=== PATIENT | female | born 1985 | race Caucasian/White ===

== ENCOUNTER 2017-11-14 22:44 | Emergency (ER) | payer OTHER ==
[2017-11-14] MEDS ORDERED: PROMETHAZINE 25 MG/ML VIAL ONE (23:21)
[2017-11-14] MEDS ORDERED: NA CHLORIDE 0.9% 1,000 ML ONE (23:21)
[2017-11-14] MEDS ORDERED: DEXAMETHASONE 10 MG/ML VIAL ONE (23:23)
[2017-11-15 00:04] LABS: Urine Blood NEGATIVE (NEG); Urine Glucose NEGATIVE (NEG); Urine Protein NEGATIVE (NEG); Urine Specific Gravity 1.015 (1.005-1.030)
[2017-11-15 00:26] LABS: Absolute Lymphocytes (CBC) 2.7 K/uL (0.7-4.9); Absolute Monocytes 0.5 K/uL (0.1-1.3); Absolute Neutrophil 3.8 K/uL (1.8-8.0); Basophils % 1.1 % (0-1.3); Eosinophils % 3.4 % (0-4.4); Hematocrit 40.3 % (36.0-45.0); Lymphocytes % 36.7 % (15.3-44.8); MCH 29.6 pg (27.0-35.0); MCV 86.3 fL (80-100); MPV 8.8 fL (7.6-11.3); Monocytes % 6.4 % (3.3-12.3); RBC Red Blood Cell Count 4.67 M/uL (3.86-4.86)
[2017-11-15 00:32] LABS: Barbiturates NEGATIVE; Benzodiazepines POSITIVE; Cocaine NEGATIVE; METHAMPHETAM NEGATIVE (NEGATIVE); Opiates NEGATIVE; Phencyclidine NEGATIVE; THC Cannibis NEGATIVE
[2017-11-15 00:48] LABS: Potassium 3.4 mEq/L (3.6-5.0)
[2017-11-15 00:53] LABS: Albumin 4.7 g/dL (3.2-5.5); Bilirubin Direct 0.1 mg/dL (0-0.2); Bilirubin Total 0.8 mg/dL (0.3-1.2); Protein, Total 7.4 g/dL (6.0-8.3)
[2017-11-15 01:02] LABS: Urine Bacteria <20 /HPF (<20); Urine Culture Reflex Order NOT NEEDED; Urine RBC NONE SEEN /HPF (NONE SEEN)
[2017-11-15] MEDS ORDERED: ACETAMINOPHEN 500 MG TAB ONE (01:28)
[2017-11-15] MEDS ORDERED: MORPHINE 4 MG/ML SYR ONE (01:28)
--- NOTE | 2017-11-15 03:28 | ER ---
Nurse's Notes [facility] Name: Jennifer Uriostegui Age: 32 yrs Sex: Female : 1985 Arrival Date: 11/14/2017 Time: 22:49 Bed 6 Private MD: Diagnosis: Acute on Chronic Migraine Headache Presentation: 11/14 23:11 Presenting complaint: Patient states: migraine started at 2014. pt takes phenergen, ak1 imatrex and hydrocodone/motrin at home for chronic migraines. Transition of care: patient was not received from another setting of care. Onset of symptoms was November 14, 2017. Risk Assessment: Do you want to hurt yourself or someone else? Patient reports no desire to harm self or others. Initial Sepsis Screen: Does the patient meet any 2 criteria? No. Patient's initial sepsis screen is negative. Does the patient have a suspected source of infection? No. Patient's initial sepsis screen is negative. Care prior to arrival: None. 23:11 Method Of Arrival: Ambulatory ak 23:11 Acuity: GISELLE 3 ak1 Triage Assessment: 23:14 Headache History: The patient has had previous headaches and this one is similar to ak1 previous episodes, and this one is more severe than previous episodes. General: Appears uncomfortable, Behavior is calm, cooperative. Pain: Complains of pain in head Pain currently is 8 out of 10 on a pain scale. Pain began 3 hours ago. Also complains of nausea, photophobia. EENT: No signs and/or symptoms were reported regarding the EENT system. Neuro: Level of Consciousness is awake, alert, obeys commands, Oriented to person, place, time, situation, Teacher Instrumental are equal bilaterally Moves all extremities. Gait is steady, Speech is normal, Facial symmetry appears normal, Pupils are PERRLA. Cardiovascular: No deficits noted. Respiratory: No deficits noted. GI: No signs and/or symptoms were reported involving the gastrointestinal system. : No signs and/or symptoms were reported regarding the genitourinary system. Derm: No signs and/or symptoms reported regarding the dermatologic system. Musculoskeletal: No signs and/or symptoms reported regarding the musculoskeletal system. 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 - Social history:: Smoking status: Patient/guardian denies using tobacco. - Ebola Screening: : Patient negative for fever greater than or equal to 101.5 degrees Fahrenheit, and additional compatible Ebola Virus Disease symptoms Patient denies exposure to infectious person Patient denies travel to an Ebola-affected area in the 21 days before illness onset. Screenin:17 Abuse screen: Denies threats or abuse. Denies injuries from another. Nutritional ak1 screening: No deficits noted. Tuberculosis screening: No symptoms or risk factors identified. Fall Risk None identified. Assessment: 23:17 Reassessment: Patient appears in no apparent distress at this time. No changes from ak1 previously documented assessment. see triage assessment. General: Appears uncomfortable. Pain: Complains of pain in headache. 11/15 00:06 Reassessment: Patient appears in no apparent distress at this time. No changes from ak1 previously documented assessment. Patient and/or family updated on plan of care and expected duration. Pain level reassessed. 01:11 Reassessment: pt IV infiltrated, pt refusing new IV start. ERP notified. ak1 01:19 Reassessment: pt refused another IV stick, pt asking what ERP will give to relieve the ak1 pain. ERP notified. 03:32 Reassessment: Patient and/or family updated on plan of care and expected duration. Pain ea level reassessed. Patient is alert, oriented x 3, equal unlabored respirations, skin warm/dry/pink. Discharge instructions given to patient, verbalized the understanding of instructions. Vital Signs: 11/14 23:14 BP 131 / 78; Pulse 82; Resp 16; Temp 97.6(TE); Pulse Ox 100% on R/A; Weight 83.91 kg ak1 (R); Height 5 ft. 7 in. (170.18 cm) (R); Pain 8/10; 11/15 01:18 BP 122 / 87; Pulse 58; Resp 16; Pulse Ox 100% on R/A; Pain 8/10; ak1 01:53 BP 113 / 72; Pulse 51; Resp 16; Temp 98.; Pulse Ox 99% on R/A; Pain 6/10; ak1 02:48 BP 104 / 79; Pulse 51; Resp 16; Pulse Ox 99% on R/A; ak1 03:27 BP 102 / 67; Pulse 51; Resp 14; Temp 98; Pulse Ox 99% on R/A; Pain 3/10; ak1 11/14 23:14 Body Mass Index 28.97 (83.91 kg, 170.18 cm) ak1 ED Course: 11/14 22:49 Patient arrived in ED. al2 23:06 Brendan Hines NP is PHCP. pm1 23:06 Nick Simpson MD is Attending Physician. pm1 23:11 Jina Stinson, KISHAN is Primary Nurse. ak1 23:12 Triage completed. ak1 23:14 Arm band placed on Patient placed in an exam room, on a stretcher, on pulse oximetry, ak1 Patient notified of wait time. 23:17 Patient has correct armband on for positive identification. Placed in gown. Bed in low ak1 position. Call light in reach. Side rails up X 1. Adult w/ patient. Pulse ox on. NIBP on. 23:40 Inserted saline lock: 22 gauge in right antecubital area, using aseptic technique. ak1 11/15 00:21 Initial lab(s) drawn, by me, sent to lab. cb2 02:33 Head Brain Wo Cont CT In Process Unspecified. EDMS 02:33 CT completed. Patient tolerated procedure well. Patient moved to CT via wheelchair. eh Patient moved back from CT. 03:26 Gautam Feliciano MD is Referral Physician. wa 03:27 IV discontinued, intact, bleeding controlled, No redness/swelling at site. Pressure ak1 dressing applied. 03:28 No provider procedures requiring assistance completed. ak1 Administered Medications: 11/14 23:33 Drug: NS 0.9% 1000 ml Route: IV; Rate: 1 bolus; Site: right antecubital; ak1 11/15 01:37 Follow up: IV Status: Order to discontinue infusion ak1 11/14 23:34 Drug: Decadron - Dexamethasone 10 mg Route: IVP; Site: right antecubital; ak1 11/15 01:37 Follow up: Response: No adverse reaction ak1 11/14 23:34 Drug: Phenergan 12.5 mg Route: IVP; Site: right antecubital; ak1 11/15 01:37 Follow up: Response: No adverse reaction ak06 21:26 CANCELLED (Physician Discretion): morphine 5 mg IM once 01:36 Drug: morphine 4 mg Route: IM; Site: right gluteus; ak1 01:54 Follow up: Response: No adverse reaction ak1 01:37 Drug: Tylenol 1000 mg Route: PO; ak1 01:54 Follow up: Response: No adverse reaction ak1 Outcome: 03:27 Discharge ordered by . ca 03:33 Discharged to home ambulatory, with family. ea 03:33 Condition: improved 03:33 Discharge instructions given to patient, Instructed on discharge instructions, follow up and referral plans. Demonstrated understanding of instructions, follow-up care. 03:34 Patient left the ED. ea Signatures: Dispatcher [employer] Silviano Collins Amber RN RN ak1 Brendan Hines, THERESA MANAGER COUNTRY pm1 Renato Green Elena, RN RN ea Appiah, William, MD MD wa Love, Flavia sanchez
--- NOTE | 2017-11-15 03:28 | EDPHYS ---
Physician Documentation [facility] Name: Jennifer Uriostegui Age: 32 yrs Sex: Female : 1985 Arrival Date: 11/14/2017 Time: 22:49 Bed 6 Private MD: ED Physician Nick Simpson HPI: 11/14 23:30 This 32 yrs old Female presents to ER via Ambulatory with complaints of wa Headache. 23:30 The patient complains of pain to the forehead. The patient describes the headache as wa aching, constant. Onset: The symptoms/episode began/occurred gradually, 3 hour(s) ago, and became worse 1 hour(s) ago. Associated signs and symptoms: Pertinent positives: nausea, Photophobia blurred vision, Pertinent negatives: altered mental status, fever, malaise. Severity of symptoms: At its worst the pain was severe, in the emergency department the pain is unchanged. Headache History: The patient has had previous headaches and this one is similar to previous episodes. The symptoms are alleviated by nothing. the symptoms are aggravated by lights, noise, stress. The patient has experienced similar episodes in the past, multiple times. The patient has not recently seen a physician. 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 - Social history:: Smoking status: Patient/guardian denies using tobacco. - Ebola Screening: : Patient negative for fever greater than or equal to 101.5 degrees Fahrenheit, and additional compatible Ebola Virus Disease symptoms Patient denies exposure to infectious person Patient denies travel to an Ebola-affected area in the 21 days before illness onset. ROS: 23:36 Constitutional: Negative for fever, chills, and weight loss, Eyes: Negative for injury, wa pain, redness, and discharge, ENT: Negative for injury, pain, and discharge, Neck: Negative for injury, pain, and swelling, Cardiovascular: Negative for chest pain, palpitations, and edema, Respiratory: Negative for shortness of breath, cough, wheezing, and pleuritic chest pain, Abdomen/GI: Negative for abdominal pain, nausea, vomiting, diarrhea, and constipation, Back: Negative for injury and pain, : Negative for injury, bleeding, discharge, and swelling, MS/Extremity: Negative for injury and deformity, Skin: Negative for injury, rash, and discoloration. 23:36 Neuro: Positive for headache, Negative for altered mental status, gait disturbance. 23:36 All other systems are negative. Exam: 23:37 Constitutional: This is a well developed, well nourished patient who is awake, alert, wa and in no acute distress. Head/Face: Normocephalic, atraumatic. Eyes: Pupils equal round and reactive to light, extra-ocular motions intact. Lids and lashes normal. Conjunctiva and sclera are non-icteric and not injected. Cornea within normal limits. Periorbital areas with no swelling, redness, or edema. ENT: Nares patent. No nasal discharge, no septal abnormalities noted. Tympanic membranes are normal and external auditory canals are clear. Oropharynx with no redness, swelling, or masses, exudates, or evidence of obstruction, uvula midline. Mucous membranes moist. Neck: Trachea midline, no thyromegaly or masses palpated, and no cervical lymphadenopathy. Supple, full range of motion without nuchal rigidity, or vertebral point tenderness. No Meningismus. Cardiovascular: Regular rate and rhythm with a normal S1 and S2. No gallops, murmurs, or rubs. Normal PMI, no JVD. No pulse deficits. Respiratory: Lungs have equal breath sounds bilaterally, clear to auscultation and percussion. No rales, rhonchi or wheezes noted. No increased work of breathing, no retractions or nasal flaring. Abdomen/GI: Soft, non-tender, with normal bowel sounds. No distension or tympany. No guarding or rebound. No evidence of tenderness throughout. Back: No spinal tenderness. No costovertebral tenderness. Full range of motion. Skin: Warm, dry with normal turgor. Normal color with no rashes, no lesions, and no evidence of cellulitis. MS/ Extremity: Pulses equal, no cyanosis. Neurovascular intact. Full, normal range of motion. Neuro: Awake and alert, GCS 15, oriented to person, place, time, and situation. Cranial nerves II-XII grossly intact. Motor strength 5/5 in all extremities. Sensory grossly intact. Cerebellar exam normal. Normal gait. Psych: Awake, alert, with orientation to person, place and time. Behavior, mood, and affect are within normal limits. Vital Signs: 23:14 BP 131 / 78; Pulse 82; Resp 16; Temp 97.6(TE); Pulse Ox 100% on R/A; Weight 83.91 kg ak1 (R); Height 5 ft. 7 in. (170.18 cm) (R); Pain 8/10; 11/15 01:18 BP 122 / 87; Pulse 58; Resp 16; Pulse Ox 100% on R/A; Pain 8/10; ak1 01:53 BP 113 / 72; Pulse 51; Resp 16; Temp 98.; Pulse Ox 99% on R/A; Pain 6/10; ak1 02:48 BP 104 / 79; Pulse 51; Resp 16; Pulse Ox 99% on R/A; ak1 03:27 BP 102 / 67; Pulse 51; Resp 14; Temp 98; Pulse Ox 99% on R/A; Pain 3/10; ak1 11/14 23:14 Body Mass Index 28.97 (83.91 kg, 170.18 cm) ak1 MDM: 11/14 23:13 Patient medically screened. nh 23:37 Differential diagnosis: similar SAHU to previous migraines. no other concerning factors. nh will treat and reassess for resolution. 11/15 03:25 Data reviewed: vital signs, nurses notes, lab test result(s). Test interpretation: by nh ED physician or midlevel provider: nml head CT. labs wnl. . Response to treatment: the patient's symptoms have markedly improved after treatment. ED course: symptoms resolved. pt states has all her meds at home and does not need a script. 11/14 23:15 Order name: Urine Drug Screen; Complete Time: 01:07 nh 11/14 23:15 Order name: Urine Microscopic Only; Complete Time: 01:08 nh 11/14 23:15 Order name: Basic Metabolic Panel; Complete Time: 01:07 nh 11/14 23:15 Order name: CBC with Diff; Complete Time: 01:07 nh 11/14 23:15 Order name: Hepatic Function; Complete Time: 01:07 nh 11/14 23:33 Order name: Urine Dipstick--Ancillary (enter results); Complete Time: 01:08 [facility] 11/14 23:33 Order name: Urine --Ancillary (enter results); Complete Time: 01:07 [facility] 11/15 01:24 Order name: Head Brain Wo Cont CT nh 11/14 23:15 Order name: IV Start; Complete Time: 23:34 nh 11/14 23:15 Order name: Urine Dipstick-Ancillary (obtain specimen); Complete Time: 23:36 nh Administered Medications: 11/14 23:33 Drug: NS 0.9% 1000 ml Route: IV; Rate: 1 bolus; Site: right antecubital; [facility] 11/15 01:37 Follow up: IV Status: Order to discontinue infusion [facility] 11/14 23:34 Drug: Decadron - Dexamethasone 10 mg Route: IVP; Site: right antecubital; [facility] 11/15 01:37 Follow up: Response: No adverse reaction [facility] 11/14 23:34 Drug: Phenergan 12.5 mg Route: IVP; Site: right antecubital; [facility] 11/15 01:37 Follow up: Response: No adverse reaction [facility] 01:26 CANCELLED (Physician Discretion): morphine 5 mg IM once 01:36 Drug: morphine 4 mg Route: IM; Site: right gluteus; ak1 01:54 Follow up: Response: No adverse reaction [facility] 01:37 Drug: Tylenol 1000 mg Route: PO; ak1 01:54 Follow up: Response: No adverse reaction ak1 Disposition: 11/15/17 03:27 Discharged to Home. Impression: Acute on Chronic Migraine Headache. - Condition is Stable. - Discharge Instructions: Migraine Headache, [id number]. - Medication Reconciliation Form, Thank You Letter, Antibiotic Education, Prescription Opioid Use form. - Follow up: Gautam Feliciano MD; When: 2 - 3 days; Reason: Recheck today's complaints, Re-evaluation by your physician. - Problem is an acute exacerbation. - Symptoms have improved. - Notes: follow up with your neurologist as needed but return here for any rapidly worsening concerns Signatures: Dispatcher [employer] EDJina Guzman RN RN ak1 Tori Dempsey RN RN ea Nick Simpson MD MD wa Corrections: (The following items were deleted from the chart) 01:26 01:25 morphine 5 mg IM once ordered. bina curran 03:34 03:27 11/15/2017 03:27 Discharged to Home. Impression: Acute on Chronic Migraine ea Headache. Condition is Stable. Forms are Medication Reconciliation Form, Thank You Letter, Antibiotic Education, Prescription Opioid Use. Follow up: Gautam Feliciano; When: 2 - 3 days; Reason: Recheck today's complaints, Re-evaluation by your physician. Problem is an acute exacerbation. Symptoms have improved. bina
--- NOTE | 2017-11-15 09:44 | RAD REPORT ---
EXAM DESCRIPTION: CT - Head Brain Wo Cont - 11/15/2017 3:20 am CLINICAL HISTORY: Headache A preliminary written report was provided at the time of the study, and the report was reviewed prio r to final dictation. COMPARISON: CT head 2010 TECHNIQUE: Axial 5 mm thick images of the head were obtained without IV contrast. All CT scans are performed using dose optimization technique as appropriate and may include automated exposure control or mA/KV adjustment according to patient size. FINDINGS: No intracranial hemorrhage, mass, edema or shift of mid-line structures. No acute infarcti on changes seen. No abnormal extra-axial fluid collections. Ventricles are normal. Mastoid air cells and visualized portions of the paranasal sinuses are clear. No acute bony findings. IMPRESSION: Negative non-contrast CT head examination. No significant change from 2011.
== END 2017-11-15 03:34 | disposition home or self-care (01) ==
LOC: ER 22:44
DX: G43.809 Other migraine, not intractable, without status migrainosus (principal); Z88.6 Allergy status to analgesic agent; Z88.8 Allergy status to other drugs, medicaments and biological substances
CPT/HCPCS: 36415; 70450; 80048; 80076; 80307; 81003; 81015; 81025; 85025; 96361; 96372; 96374; 96375; 99284; J1100; J2550; J7030

== ENCOUNTER 2018-11-07 05:52 | Emergency (ER) | payer OTHER ==
--- OUTSIDE RECORDS SUMMARY | 2018-11-07 05:57 | XMS REPORT | Summary of Care ---
:1985 Author Organization [facility] Address [address] [place] [id number] Encounter HQ Zeferino(AASHISH) [id number] Date(s): 02/06/16 - 02/09/[address] [address]- Final: related conditions, unspecified, unspecified trimester Discharge Disposition: Home or Self Care Attending Physician: Brayan Kaur MD Admitting Physician: Brayan Kaur MD Vital Signs Most recent to oldest 1 2 3 [Reference Range]: Height 170.18 cm (02/06/16 2:53 PM) Temperature Oral [96.4-99.1 97.8 DegF 97.4 DegF 97.9 DegF DegF] (02/09/16 12:26 AM) (02/08/16 4:18 PM) (02/08/16 8:54 AM) Blood Pressure [90-140/60-90 111/65 mmHg 130/77 mmHg 119/76 mmHg mmHg] (02/09/16 9:52 AM) (02/09/16 12:26 AM) (02/08/16 4:18 PM) Respiratory Rate [14-20 16 BRMIN 18 BRMIN 16 BRMIN BRMIN] (02/09/16 9:52 AM) (02/09/16 12:26 AM) (02/08/16 4:18 PM) Peripheral Pulse Rate [60-100 76 bpm 81 bpm 72 bpm bpm] (02/09/16 9:52 AM) (02/09/16 12:26 AM) (02/08/16 4:18 PM) Weight 104.545 kg (02/06/16 2:53 PM) Body Mass Index 36.1 m2 (02/06/16 2:53 PM) Problem List Condition Effective Dates Status Health Status Informant (Confirmed) Resolved Anxiety(Confirmed) Active Depression(Confirmed) Active Group B streptococcus(Confirmed) Active Migraines(Confirmed) Active (Confirmed) Active (Confirmed) 02/03/16 Active (Confirmed) < 2014 Resolved Vaginal delivery(Confirmed) 02/07/16 Active Allergies, Adverse Reactions, Alerts Substance Reaction Severity Status Compazine Reglan Active Reglan Reglan Active Toradol Active Zofran iv form Active Medications acetaminophen-hydrocodone 325 mg-10 mg oral tablet 1 tab, Route: PO, Drug Form: TAB, Dosing Weight 104.545, kg, Q4H, PRN Pain Score 7-10, Start date: 02/08/16 3:14:00 CDT, Duration: 30 day, Stop date: 03/09 3:13:00 CDT Notes: Do not exceed 4gm/day of acetaminophen. (Same as: [place] 325/10) Start Date: 02/08/16 Stop Date: 02/10/16 Status: Discontinuedacetaminophen-hydrocodone 325 mg-5 mg oral tablet 1 tab, Route: PO, Drug Form: TAB, Dosing Weight 104.545, kg, Q4H, PRN Pain Score 4-6, Start date: 02/08/16 3:14:00 CDT, Duration: 30 day, Stop date: 3:13:00 CDT Notes: (Same as: [place] 325/5) Do not exceed 4gm/day of acetaminophen. Start Date: 02/08/16 Stop Date: 02/10/16 Status: Discontinuedacetaminophen-hydrocodone 325 mg-5 mg oral tablet 2 tab, Route: PO, Drug Form: TAB, Dosing Weight 104.545, kg, Q4H, PRN Pain Score 7-10, Start date: 02/06/16 15:23:00 CDT, Duration: 30 day, Stop date: 15:22:00 CDT Notes: (Same as: [place] 325/5) Do not exceed 4gm/day of acetaminophen. Start Date: 02/06/16 Stop Date: 02/08/16 Status: Discontinuedacetaminophen-hydrocodone 325 mg-5 mg oral tablet 1 tab, Route: PO, Drug Form: TAB, Dosing Weight 104.545, kg, Q4H, PRN Pain Score 4-6, Start date: 02/06/16 15:23:00 CDT, Duration: 30 day, Stop date: 03/07 15:22:00 CDT Notes: (Same as: [place] 325/5) Do not exceed 4gm/day of acetaminophen. Start Date: 02/06/16 Stop Date: 02/08/16 Status: DiscontinuedAmbien 5 mg, 1 tab, Route: PO, Drug form: TAB, Bedtime, Dosing Weight 104.545, kg, PRN Insomnia, Start date: 02/06/16 18:39:00 CDT, Duration: 30 day, Stop date: 18:38:00 CDT Notes: (Same As: Ambien) Start Date: 02/06/16 Stop Date: 02/10/16 Status: Discontinuedampicillin 4 gm, Route: IV, ONCE, Dosing Weight 104.545, kg, Start date: 02/07/16 21:42:00 CDT, Stop date: 02/07/16 21:42:00 CDT Start Date: 02/07/16 Stop Date: 02/07/16 Status: Discontinuedampicillin 2 gm, Route: IVPB, ABXQ6H, Dosing Weight 104.545, kg, Start date: 02/07/16 22:00 :00 CDT, Duration: 30 day, Stop date: 03/08/16 16:00:00 CDT Start Date: 02/07/16 Stop Date: 02/07/16 Status: Canceledampicillin + sodium chloride 0.9% INJ 100 mL 2 gm, Route: IVPB, ONCE, Dosing Weight 104.545, kg, Start date: 02/07/16 21:45: 00 CDT, Stop date: 02/07/16 21:45:00 CDT Notes: (Same as: Flor) MEDICATION WASTE Product Size: 2000 mgProduct Wasted: ___ mg Start Date: 02/07/16 Stop Date: 02/07/16 Status: Completedampicillin + sodium chloride 0.9% INJ 100 mL 1 gm, Route: IVPB, Drug form: PDR/INJ, ABXQ6H, Dosing Weight 104.545, kg, Start date: 02/07/16 22:00:00 CDT, Duration: 30 day, Stop date: 03/08/16 16:00:00 CDT Notes: (Same as: Flor) MEDICATION WASTE Product Size: 1000 mgProduct Wasted: ___ mg Start Date: 02/07/16 Stop Date: 02/09/16 Status: DiscontinuedBD Normal Saline Flush 5 mL, Route: IV, Drug Form: INJ, PRN, PRN Line Flush, Start date: 02/07/16 8:08: 00 CDT, Duration: 30day, Stop date: 03/08/16 8:07:00 CDT Notes: (Same as: BD Posiflush) Start Date: 02/07/16 Stop Date: 02/10/16 Status: DiscontinuedBenadryl 25 mg, 0.5 mL, Route: IVP, Drug form: INJ, ONCE, Dosing Weight 104.545, kg, PRN Itching, Start date:02/07/16 7:45:00 CDT Notes: (Same as: Benadryl) Start Date: 02/07/16 Stop Date: 02/07/16 Status: Completedbisacodyl 15 mg, 3 tab, Route: PO, Drug form: ECTAB, Daily, Dosing Weight 104.545, kg, PRN Other -See Comment,Start date: 02/08/16 3:14:00 CDT, Duration: 30 day, Stop date: 03/09/16 3:13:00 CDT Notes: (Same As: Dulcolax, Correctol) (Do Not Crush) "Do Not Crush" Start Date: 02/08/16 Stop Date: 02/10/16 Status: Discontinuedbisacodyl 10 mg, 1 supp, Route: NE, Drug form: SUPP, PRN, Dosing Weight 104.545, kg, PRN Other -See Comment, Start date: 02/08/16 3:14:00 CDT, Duration: 30 day, Stop date: 03/09/16 3:13:00 CDT Notes: (Same As: Dulcolax, Bisco-Lax) Start Date: 02/08/16 Stop Date: 02/10/16 Status: Discontinuedbupivacaine-epinephrine 0.25%-1:200,000 preservative-free injectable solution Route: EPIDURAL, Drug Form: INJ, Dosing Weight 104.545, kg, ONCE, Start date: 4:46:00 CDT, Stop date: 02/07/16 4:46:00 CDT Notes: (bupivacaine-epi 0.25%-1:200,000 30 ml VL) Not for use in continuous infusion. (Same As: Marcaine w/Epi) Start Date: 02/07/16 Stop Date: 02/07/16 Status: OrderedBuSpar 15 mg, 1 tab, Route: PO, Drug form: TAB, Bedtime, Dosing Weight 104.545, kg, Start date: 02/06/16 21:00:00 CDT, Duration: 30 day, Stop date: 03/06/16 21:00: 00 CDT Notes: (Same As: BuSpar) Start Date: 02/06/16 Stop Date: 02/10/16 Status: Discontinuedbutorphanol 2 mg, 2 mL, Route: IVP, Drug form: INJ, Q2H, Dosing Weight 104.545, kg, PRN Pain Score 7-10, Start date: 02/06/16 15:23:00 CDT, Duration: 30 day, Stop date : 03/07/16 15:22:00 CDT Notes: (Same As: Stadol) Start Date: 02/06/16 Stop Date: 02/08/16 Status: Discontinuedbutorphanol 1 mg, 1 mL, Route: IVP, Drug form: INJ, Q2H, Dosing Weight 104.545, kg, PRN Pain Score 4-6, Start date: 02/06/16 15:23:00 CDT, Duration: 30 day, Stop date: 03/07/16 15:22:00 CDT Notes: (Same As: Stadol) Start Date: 02/06/16 Stop Date: 02/08/16 Status: Discontinuedcarboprost 250 microgram, 1 mL, Route: IM, Drug form: INJ, ONCALL, Dosing Weight 104.545, kg, Start date: 02/06/16 16:00:00 CDT, Duration: 30 day, Stop date: 03/07/16 15: 59:00 CDT Notes: (Same As: Hemabate) Start Date: 02/06/16 Stop Date: 02/08/16 Status: DiscontinuedCervidil 10 mg, 1 supp, Route: VAG, Drug form: SUPP, ONCE, Dosing Weight 104.545, kg, Start date: 02/06/16 18:38:00 CDT, Duration: 1 doses or times, Stop date: 18:38:00 CDT Notes: (Same as: Cervidil) Start Date: 02/06/16 Stop Date: 02/06/16 Status: Completedcitric acid-sodium citrate 30 mL, Route: PO, Drug Form: SOLN, Dosing Weight 104.545, kg, ONCALL, Start date : 02/06/16 16:00:00 CDT, Duration: 30 day, Stop date: 03/07/16 15:59:00 CDT Notes: (Same As: Bicitra, Cytra-2) Sodium citrate-citric acid (500-334 mg/5 mL) : 1 mL contains sodium 1 mEq/mL and bicarbonate 1 mEq/mL Start Date: 02/06/16 Stop Date: 02/08/16 Status: DiscontinuedDermoplast 20% topical spray 1 spray, Route: TOP, PRN, Drug form: SPRY, PRN Irritation, Start date: 02/08/16 3:14:00 CDT, Duration: 30 day, Stop date: 03/09/16 3:13:00 CDT Notes: (Same As: Dermoplast)WASTE: Aerosol - Return to Pharmacy FOR EXTERNAL USE ONLY Start Date: 02/08/16 Stop Date: 02/10/16 Status: Discontinueddiphtheria/pertussis, acel/tetanus adult 2 units-15.5 mcg-5 units/0.5 mL intramuscular suspension 0.5 mL, Route: IM, Drug Form: SUSP, Dosing Weight 104.545, kg, ONCALL, Start date: 02/08/16 4:00:00 CDT, Duration: 1 doses or times Notes: (Tdap ) For Adolecent and Adult use For IM Use. Same as: Adacel (Tdap) Start Date: 02/08/16 Stop Date: 02/10/16 Status: Discontinueddocusate 100 mg, 1 cap, Route: PO, Drug form: CAP, BID, Dosing Weight 104.545, kg, PRN Constipation, Start date: 02/08/16 3:14:00 CDT, Duration: 30 day, Stop date: 3:13:00 CDT Notes: (Same as: Colace) (Do Not Crush) Start Date: 02/08/16 Stop Date: 02/10/16 Status: Discontinuedfamotidine 20 mg, 2 mL, Route: IVP, Drug form: INJ, ONCALL, Dosing Weight 104.545, kg, Start date: 02/06/16 16:00:00 CDT, Duration: 30 day, Stop date: 03/07/16 15:59: 00 CDT Notes: (Same as: Pepcid)Can be dilute in 5-10cc NS IVP: Slow IV push over at least 2 minutes. Start Date: 02/06/16 Stop Date: 02/08/16 Status: DiscontinuedfentaNYL 4 microgram/ml-bupiv 0.167% 200ml CADD 200 mL Route: EPIDURAL, Continuous Rate: 8, ml/hr, Infusion site: Lumbar, ELECTRIC METER TESTER HELPER dose 3 mL , ELECTRIC METER TESTER HELPER dose lockout: 10 minutes, 1 Hour limit: 30 mL, Clinician Bolus: 5 mL, 200 , mL, Start date: 02/07/16 4:46:00 CDT, Duration: 30, day, Drug Form: INJ, Total volume: 200... Start Date: 02/07/16 Stop Date: 02/10/16 Status: DiscontinuedFioricet 1 tab, Route: PO, Drug Form: TAB, Dosing Weight 104.545, kg, Q4H, PRN Headache 1 -5, Start date: 02/07/16 14:01:00 CDT, Duration: 30 day, Stop date: 03/08/16 14: 00:00 CDT Notes: (hvqnznwargltw-sldbuuiwyn-akruwfch 325-50-40mg) Do not exceed 4 gm/day of acetaminophen. (Same as: Esgic, Fioricet) Start Date: 02/07/16 Stop Date: 02/10/16 Status: Discontinuedgentamicin 120 mg, 100 mL, Route: IV, Drug form: INJ, ONCE, Dosing Weight 104.545, kg, Start date: 02/07/16 21:28:00 CDT, Stop date: 02/07/16 21:28:00 CDT Notes: TIME CRITICAL MEDICATION(Same as Garamycin) Start Date: 02/07/16 Stop Date: 02/07/16 Status: Completedgentamicin 80 mg, 100 mL, Route: IVPB, Drug form: INJ, ABXQ8H, Dosing Weight 104.545, kg, Start date: 02/07/16 5:00:00 CDT, Duration: 30 day, Stop date: 03/07/16 21:00: 00 CDT Notes: TIME CRITICAL MEDICATION(Same as Garamycin) Start Date: 02/07/16 Stop Date: 02/09/16 Status: Discontinuedibuprofen 600 mg, 1 tab, Route: PO, Drug form: TAB, Q6H, Dosing Weight 104.545, kg, Start date: 02/08/16 6:00:00 CDT, Duration: 30 day, Stop date: 03/09/16 0:00:00 CDT Notes: (Same as: Motrin)"Do Not Crush" Take with food. Start Date: 02/08/16 Stop Date: 02/10/16 Status: Discontinuedibuprofen 600 mg, 1 tab, Route: PO, Drug form: TAB, Q6H, Dosing Weight 104.545, kg, PRN Other -See Comment, Start date: 02/06/16 15:23:00 CDT, Duration: 30 day, Stop date: 03/07/16 15:22:00 CDT Notes: (Same as: Motrin)"Do Not Crush" Take with food. Start Date: 02/06/16 Stop Date: 02/08/16 Status: DiscontinuedLactated Ringers (Bolus) IV 1,000 mL, 1,000 ml/hr, Infuse Over: 1 hr, Route: IV, 1,000, Drug form: INJ, ONCE , Dosing Weight 104.545 kg, Start date: 02/06/16 15:23:00 CDT, Stop date: 15:23:00 CDT, Bolus for regional anesthesia per unit protocol Start Date: 02/06/16 Stop Date: 02/08/16 Status: DiscontinuedLactated Ringers 1,000 mL 1,000 mL, Rate: 100 ml/hr, Infuse over: 10 hr, Route: IV, Dosing Weight 104.545 kg, Total Volume: 1,000, Start date: 02/08/16 3:14:00 CDT, Duration: 30 day, Stop date: 03/09/16 3:13:00 CDT Start Date: 02/08/16 Stop Date: 02/10/16 Status: DiscontinuedLactated Ringers 1,000 mL 1,000 mL, Rate: 125 ml/hr, Infuse over: 8 hr, Route: IV, Dosing Weight 104.545 kg, Total Volume: 1,000, Start date: 02/06/16 15:23:00 CDT, Duration: 30 day, Stop date: 03/07/16 15:22:00 CDT Start Date: 02/06/16 Stop Date: 02/08/16 Status: Discontinuedlanolin topical 1 appl, Route: TOP, PRN, Drug form: OINT, PRN Other -See Comment, Start date: 3:14:00 CDT, Duration: 30 day, Stop date: 03/09/16 3:13:00 CDT Notes: (Same as:Lanolin) Start Date: 02/08/16 Stop Date: 02/10/16 Status: Discontinuedlidocaine 1% 20 mL, Route: PERCUT, Drug Form: INJ, Dosing Weight 104.545, kg, PRN, PRN Other -See Comment, Start date: 02/06/16 15:23:00 CDT, Duration: 1 doses or times, Stop date: 03/08/16 0:00:00 CDT Notes: Preservative free. (Same as: Xylocaine MPF) Start Date: 02/06/16 Stop Date: 02/08/16 Status: Discontinuedlidocaine 1% injectable solution 0.25 mL, Route: INTRADERM, Drug Form: INJ, Dosing Weight 104.545, kg, PRN, PRN Other -See Comment, Start date: 02/06/16 15:23:00 CDT, Duration: 30 day, Stop date: 03/07/16 15:22:00 CDT Notes: Preservative free. (Same as: Xylocaine MPF) Start Date: 02/06/16 Stop Date: 02/08/16 Status: NjsxcsbrawlnY-W-W II 0.5 mL, Route: SUB-Q, Drug Form: PDR/INJ, Dosing Weight 104.545, kg, ONCALL, Give only if patient rubella non-immune, Start date: 02/08/16 4:00:00 CDT, Duration: 1 doses or times Notes: (Same as: M-M-R II) (lwylnxd-hbcrt-uisqsvg virus vaccine 0.5 ml INJ VL) WASTE: F/P - Red; E -Red GIVE PRIOR TO DISCHARGE Start Date: 02/08/16 Stop Date: 02/10/16 Status: Discontinuedmethylergonovine 0.2 mg, 1 mL, Route: IM, Drug form: INJ, PRN, Dosing Weight 104.545, kg, PRN Other -See Comment, Start date: 02/08/16 3:14:00 CDT, Duration: 30 day, Stop date: 03/09/16 3:13:00 CDT Notes: (Same as:Methergine) Start Date: 02/08/16 Stop Date: 02/10/16 Status: Discontinuedmethylergonovine 0.2 mg, 1 mL, Route: IM, Drug form: INJ, ONCALL, Dosing Weight 104.545, kg, Start date: 02/06/16 16:00:00 CDT, Duration: 30 day, Stop date: 03/07/16 15:59: 00 CDT Notes: (Same as:Methergine) Start Date: 02/06/16 Stop Date: 02/08/16 Status: Discontinuedmisoprostol 1,000 microgram, 5 tab, Route: NE, Drug form: TAB, ONCALL, Dosing Weight 104.545 , kg, Start date: 02/06/16 16:00:00 CDT, Duration: 1 doses or times, Stop date: 03/08/16 0:00:00 CDT Notes: (Same as:Cytotec) Take with food Start Date: 02/06/16 Stop Date: 02/08/16 Status: Discontinuedondansetron 4 mg, 2 mL, Route: IVP, Drug form: INJ, Q8H, Dosing Weight 104.545, kg, PRN Nausea & Vomiting, Start date: 02/08/16 3:14:00 CDT, Duration: 30 day, Stop date: 03/09/16 3:13:00 CDT Notes: (Same as: Zofran) MEDICATION WASTE Product Size: 4 mgProduct Wasted: ___ mg Start Date: 02/08/16 Stop Date: 02/10/16 Status: Discontinuedondansetron 4 mg, 2 mL, Route: IVP, Drug form: INJ, Q8H, Dosing Weight 104.545, kg, PRN Nausea & Vomiting, Start date: 02/06/16 15:23:00 CDT, Duration: 30 day, Stop date: 03/07/16 15:22:00 CDT Notes: (Same as: Zofran) MEDICATION WASTE Product Size: 4 mgProduct Wasted: ___ mg Start Date: 02/06/16 Stop Date: 02/08/16 Status: Discontinuedoxytocin 30 units in LR 500 mL 30 unit 30 unit, 500 mL, Rate: 42 ml/hr, Infuse over: 11.9 hr, Dosing Weight 104.545, kg , Route: IV, Total Volume: 500 mL, Start date: 02/08/16 3:14:00 CDT, Duration: 2 doses or times, Stop date: 02/09/16 3:01:00 CDT, Replace Every: 11.9 hr Notes: Pitocin 30 units in LR 500 mL Start Date: 02/08/16 Stop Date: 02/09/16 Status: Completedoxytocin 30 units in LR 500 mL 30 unit 30 unit, 500 mL, Rate: 42 ml/hr, Infuse over: 11.9 hr, Dosing Weight 104.545, kg , Route: IV, Total Volume: 500 mL, Start date: 02/06/16 15:23:00 CDT, Duration: 2 day, Stop date: 02/08/16 15:22:00 CDT, Replace Every: 11.9 hr Notes: Pitocin 30 units in LR 500 mL Start Date: 02/06/16 Stop Date: 02/08/16 Status: Discontinuedoxytocin 30 units in LR 500 mL 30 unit 30 unit, 500 mL, Rate: Titrate, Dosing Weight 104.545, kg, Route: IV, Total Volume: 500 mL, Start date: 02/07/16 3:44:00 CDT, Duration: 2 day, Stop date: 3:43:00 CDT, Replace Every: 12 hr Notes: Pitocin 30 units in LR 500 mL Start Date: 02/07/16 Stop Date: 02/07/16 Status: Discontinuedpenicillin G potassium 2,500,000 unit, 50 mL, Route: IVPB, Drug form: INJ, ABXQ4H, Dosing Weight 104.545, kg, Start date: 02/06/16 20:00:00 CDT Start Date: 02/06/16 Stop Date: 02/07/16 Status: Discontinuedpenicillin G potassium 5,000,000 units injection + sodium chloride 0.9% INJ 100 mL 5,000,000 unit, Route: IVPB, ONCALL, Dosing Weight 104.545, kg, Start date: 16:00:00 CDT Notes: (Same as: Pfizerpen) MEDICATION WASTE Product Size: 5,000,000 unitProduct Wasted: ___ unit Start Date: 02/06/16 Stop Date: 02/06/16 Status: CompletedPepcid 20 mg oral tablet 20 mg, 1 tab, Route: PO, Drug form: TAB, Q12H, Dosing Weight 104.545, kg, PRN Heartburn, Start date:02/06/16 19:03:00 CDT, Duration: 30 day, Stop date: 19:02:00 CDT Notes: (Same as: Pepcid) Start Date: 02/06/16 Stop Date: 02/10/16 Status: DiscontinuedPhenergan 12.5 mg, 50 mL, Route: IVPB, Drug form: SOLN, Q6H, Dosing Weight 104.545, kg, PRN Nausea & Vomiting, Start date: 02/07/16 8:36:00 CDT, Duration: 30 day, Stop date: 03/08/16 8:35:00 CDT Start Date: 02/07/16 Stop Date: 02/10/16 Status: DiscontinuedPrenatal Multivitamins oral tablet 1 tab, Route: PO, Drug Form: TAB, Dosing Weight 104.545, kg, Daily, Start date: 02/08/16 9:00:00 CDT, Duration: 30 day, Stop date: 03/08/16 9:00:00 CDT Start Date: 02/08/16 Stop Date: 02/10/16 Status: DiscontinuedRemove - dinoprostone (Cervidil) insert 1 ea, Route: VAG, Drug Form: INS, Dosing Weight 104.545, kg, ONCALL, Start date : 02/07/16 7:00:00 CDT, Duration: 30 day, Stop date: 03/08/16 6:59:00 CDT Notes: Vaginal insert: to be removed 1 hour prior to oxytocin administration or 12 hours after insertion. Start Date: 02/07/16 Stop Date: 02/10/16 Status: DiscontinuedSodium Chloride 0.9% IV 25 mL, Route: IV, Start date: 02/07/16 8:08:00 CDT, Duration: 30 day, Stop date : 03/08/16 8:07:00 CDT, PRN Line Flush Start Date: 02/07/16 Stop Date: 02/10/16 Status: Discontinuedterbutaline 0.25 mg, 0.25 mL, Route: SUB-Q, Drug form: INJ, PRN, Dosing Weight 104.545, kg, PRN Other -See Comment, Start date: 02/06/16 15:23:00 CDT, Duration: 1 doses or times, Stop date: 03/08/16 0:00:00 CDT Notes: DO NOT USE IN CHUTE OPERATOR AREA(Same As: Homero) Start Date: 02/06/16 Stop Date: 02/08/16 Status: DiscontinuedTylenol with Codeine #3 oral tablet 1 - 2 tab, PO, Q4H, PRN Pain, X 3 day, # 20 tab, 0 Refill(s) Start Date: 02/09/16 Stop Date: 02/12/16 Status: Orderedzolpidem 5 mg, Route: PO, Drug form: TAB, Bedtime, Dosing Weight 104.545, kg, PRN Sleep, Start date: 163:14:00 CDT, Duration: 30 day, Stop date: 03/09/16 3:13:00 CDT Start Date: 02/08/16 Stop Date: 02/08/16 Status: Discontinued Results BLOOD BANK RESULTS Most recent to oldest [Reference Range]: 1 2 ABO/Rh O POS *Unknown* (02/06/16 3:46 PM) Antibody Scrn Negative (02/06/16 3:46 PM) Rhig Reqd See Note 1 (02/06/16 3:46 PM) RBC product Product available (02/07/16 9:55 PM) 1Result Comment: 02/06/2016 17:23 [id number] This patient is not a candidate for Rh(O)D immune globulin.ELECTROLYTES Most recent to oldest [Reference Range]: 1 2 Sodium Lvl [135-145 mEq/L] 141 mEq/L (02/06/16 3:46 PM) Potassium Lvl [3.5-5.1 mEq/L] 4.1 mEq/L (02/06/16 3:46 PM) Chloride Lvl [95-109 mEq/L] 106 mEq/L (02/06/16 3:46 PM) CO2 [24-32 mEq/L] 22 mEq/L *LOW* (02/06/16 3:46 PM) AGAP [10.0-20.0 mEq/L] 17.1 mEq/L (02/06/16 3:46 PM) CHEM PANEL Most recent to oldest [Reference Range]: 1 2 Creatinine Lvl [0.50-1.40 mg/dL] 1.02 mg/dL (02/06/16 3:46 PM) eGFR 75 mL/min/1.73m2 1 *NA* (02/06/16 3:46 PM) BUN [7-22 mg/dL] 9 mg/dL (02/06/16 3:46 PM) B/C Ratio [6-25] 9 (02/06/16 3:46 PM) Glucose Lvl [70-99 mg/dL] 93 mg/dL (02/06/16 3:46 PM) Total Protein [6.4-8.4 g/dL] 6.1 g/dL *LOW* (02/06/16 3:46 PM) Albumin Lvl [3.5-5.0 g/dL] 2.8 g/dL *LOW* (02/06/16 3:46 PM) Globulin [2.7-4.2 g/dL] 3.3 g/dL (02/06/16 3:46 PM) A/G Ratio [0.7-1.6] 0.8 (02/06/16 3:46 PM) Calcium Lvl [8.5-10.5 mg/dL] 8.8 mg/dL (02/06/16 3:46 PM) ALT [0-65 unit/L] 18 unit/L (02/06/16 3:46 PM) AST [0-37 unit/L] 23 unit/L (02/06/16 3:46 PM) Alk Phos [39-136 unit/L] 162 unit/L *HI* (02/06/16 3:46 PM) Bili Total [0.2-1.3 mg/dL] 0.3 mg/dL (02/06/16 3:46 PM) 1Result Comment: The eGFR is calculated using the CKD-EPI formula. In most young , healthy individualsthe eGFR will be >90 mL/min/1.73m2. The eGFR declines with age. An eGFR of 60-89 may be normal in some populations, particularly the elderly, for whom the CKD-EPI formula has not been extensively validated. Use of the eGFR is not recommended in the following populations: Individuals with unstable creatinine concentrations, including patients and those with serious co-morbid conditions. Patients with extremes in muscle mass or diet. The data above are obtained from the National Kid[employer] Disease Education Program ( NKDEP) which additionally recommends that when the eGFR is used in patients with extremes of body mass index for purposesof drug dosing, the eGFR should be multiplied by the estimated BMI.URINE AND STOOL Most recent to oldest [Reference Range]: 1 2 UA Turbidity [Clear] Slight *ABN* (02/06/16 9:54 PM) UA Color [Yellow] Light Yellow *NA* (02/06/16 9:54 PM) UA pH [5.0-8.0] 5.0 (02/06/16 9:54 PM) UA Spec Grav [<=1.030] 1.020 (02/06/16 9:54 PM) UA Glucose 50mg/dl *NA* (02/06/16 9:54 PM) UA Blood [Negative] Moderate *ABN* (02/06/16 9:54 PM) UA Ketones Negative *NA* (02/06/16 9:54 PM) UA Protein [Negative mg/dL] Negative mg/dL (02/06/16 9:54 PM) UA Urobilinogen [0.1-1.0 mg/dL] <=1.0 mg/dL *NA* (02/06/16 9:54 PM) UA Bili [Negative] Negative *NA* (02/06/16 9:54 PM) UA Leuk Est [Negative] Large *ABN* (02/06/16 9:54 PM) UA Nitrite [Negative] Negative (02/06/16 9:54 PM) UA WBC [0-5 /HPF] 39 /HPF *HI* (02/06/16 9:54 PM) UA RBC [0-2 /HPF] 2 /HPF (02/06/16 9:54 PM) UA Bacteria [None Seen /HPF] Occasional /HPF *NA* (02/06/16 9:54 PM) UA Sq Epi [Few /LPF] Moderate /LPF *ABN* (02/06/16 9:54 PM) UA Mucus [None Seen /LPF] Few /LPF *NA* (02/06/16 9:54 PM) IMMUNOLOGY Most recent to oldest [Reference Range]: 1 2 Treponemal Scr [Non Reactive] Non Reactive *NA* (02/06/16 3:46 PM) HIV. [Negative] Negative *NA* (02/06/16 3:46 PM) Hep Bs Ag [Negative] Negative *NA* (02/06/16 3:46 PM) HEMATOLOGY Most recent to oldest [Reference Range]: 1 2 WBC [3.7-10.4 K/CMM] 8.4 K/CMM (02/06/16 3:46 PM) RBC [4.20-5.40 M/CMM] 4.05 M/CMM *LOW* (02/06/16 3:46 PM) Hgb [12.0-16.0 g/dL] 10.0 g/dL 11.7 g/dL *LOW* *LOW* (02/08/16 10:00 AM) (02/06/16 3:46 PM) Hct [36.0-48.0 %] 29.3 % 35.0 % *LOW* *LOW* (02/08/16 10:00 AM) (02/06/16 3:46 PM) MCV [80.0-98.0 fL] 86.3 fL (02/06/16 3:46 PM) MCH [27.0-31.0 pg] 28.8 pg (02/06/16 3:46 PM) MCHC [32.0-36.0 g/dL] 33.3 g/dL (02/06/16 3:46 PM) RDW [11.5-14.5 %] 14.0 % (02/06/16 3:46 PM) Platelet [133-450 K/CMM] 258 K/CMM (02/06/16 3:46 PM) MPV [7.4-10.4 fL] 8.2 fL (02/06/16 3:46 PM) Segs [45.0-75.0 %] 75.1 % *HI* (02/06/16 3:46 PM) Lymphocytes [20.0-40.0 %] 17.7 % *LOW* (02/06/16 3:46 PM) Monocytes [2.0-12.0 %] 6.2 % (02/06/16 3:46 PM) Eosinophils [0.0-4.0 %] 0.6 % (02/06/16 3:46 PM) Basophils [0.0-1.0 %] 0.4 % (02/06/16 3:46 PM) Segs-Bands # [1.5-8.1 K/CMM] 6.3 K/CMM (02/06/16 3:46 PM) Lymphocytes # [1.0-5.5 K/CMM] 1.5 K/CMM (02/06/16 3:46 PM) Monocytes # [0.0-0.8 K/CMM] 0.5 K/CMM (02/06/16 3:46 PM) Eosinophils # [0.0-0.5 K/CMM] 0.1 K/CMM (02/06/16 3:46 PM) Basophils # [0.0-0.2 K/CMM] 0.0 K/CMM (02/06/16 3:46 PM) Immunizations No data available for this section Procedures Procedure Date Related Diagnosis Body Site Breast augmentation Dilation and curettage Nasal sinus procedure Rhinoplasty Tonsillectomy Social History Social History Type Response Smoking Status Never smoker; Exposure to Tobacco Smoke None; Cigarette Smoking Last 365 Days No; Reg Smoking Cessation Counseling No Assessment and Plan Extracted from: Title: Clinical Document Author: Denise Corbin NP Date: 02/08/16 SUBJECTIVE: No complaints voiced, OBJECTIVE: VSS, afebrile ASSESSMENT and EXAM: Abdomen soft nontender, fundus firm with rubra lochia, voiding Positive flatus Tolerating diet PLAN: continue routine pp care Vitals and Temp: Vitals Tmp(F) Pulse BP RR SpO2 FIO2 02/07 03:00 98.9 81 121/68 18 --- --- 02/06 23:15 ---- 86 125/60 -- --- --- 02/06 23:00 ---- 90 130/64 -- --- --- 02/06 22:45 ---- 100 137/69 -- --- --- 02/06 22:30 98.1 105 128/60 -- --- --- 24 Hr Tmax: 100.8F (38.22c) at 02/06 21:15 Vital Signs are the last 5 in the past 48 hours. Scheduled Meds (5):ampicillin + sodium chloride 0.9% INJ 100 mL, busPIRone ( BuSpar), gentamicin, ibuprofen, multivitamin, ( Multivitamins oral tablet) Unscheduled Meds (8):carboprost, citric acid-sodium citrate, dinoprostone topical (Remove - dinoprostone (Cervidil) insert), diphtheria/pertussis, acel/ tetanus adult (diphtheria/pertussis, acel/tetanus adult 2 units-15.5 mcg-5 units/0.5 mL intramuscular suspension), famotidine, measles/mumps/rubella virus vaccine (M-M-R II), methylergonovine, misoprostol PRN Meds (23):APAP/butalbital/caffeine (Fioricet), Sodium Chloride 0.9% IV, acetaminophen-hydrocodone (acetaminophen-hydrocodone 325 mg-5 mg oral tablet), acetaminophen-hydrocodone (acetaminophen-hydroc odone 325 mg-5 mg oral tablet), acetaminophen-hydrocodone (acetaminophen- hydrocodone 325 mg-10 mg oral tablet), benzocaine topical (Dermoplast 20% topical spray), bisacodyl, bisacodyl, butorphanol, buto rphanol, docusate, famotidine (Pepcid 20 mg oral tablet), ibuprofen, lanolin topical, lidocaine (lidocaine 1% injectable solution), lidocaine (lidocaine 1%) , methylergonovine, ondansetron, ondansetron, promethazine (Phenergan), sodium chloride (BD Normal Saline Flush), terbutaline , zolpidem (Ambien) One Time Meds (4):(Completed) ampicillin + sodium chloride 0.9% INJ 100 mL, ( Discontinued) ampicillin, (Ordered) bupivacaine-epinephrine (bupivacaine- epinephrine 0.25%-1:200,000 preservative-free injectable solution), (Completed) gentamicin Continuous Infusions (5):Lactated Ringers 1,000 mL, Lactated Ringers 1,000 mL, fentaNYL 4 microgram/ml-bupiv 0.167% 200ml CADD 200 mL, oxytocin 30 units in LR 500 mL 30 unit, oxytocin 30 units in LR 500 mL 30 unit 24hr Labs 02/06 2220 Temp Cord Art 37.0 pH Cord Art 7.28 PCO2 Cord Art 55 PO2 Cord Art 21 HCO3 Cord Art 26 BE Cord Art -2 Temp Cord Matty 37.0 pH Cord Matty 7.36 PCO2 Cord Matty 38 PO2 Cord Matty 31 HCO3 Cord Matty 22 BE Cord Matty -4 02/06 2155 RBC product Product available 02/05 1546 XM EXM Interp Computer XM OK XM EXM Interp Computer XM OK Treponemal Scr Non Reactive
--- OUTSIDE RECORDS SUMMARY | 2018-11-07 05:57 | XMS REPORT | Summary of Care ---
:1985 Author Organization [facility] Address [address] [place] [address]- Encounter [facility] Zeferino(AASHISH) [id number] Date(s): 09/09/15 - 09/10/[address] [address]- Discharge Diagnosis: Migraine Discharge Disposition: Home Attending Physician: Mary Gilbert MD Vital Signs Most recent to oldest [Reference Range]: 1 2 Height 170.18 cm (09/09/15 11:06 PM) Temperature Oral [96.4-99.1 DegF] 98.2 DegF (09/09/15 11:06 PM) Blood Pressure [90-140/60-90 mmHg] 116/72 mmHg 122/70 mmHg (09/10/15 2:42 AM) (09/09/15 11:06 PM) Respiratory Rate [14-20 BRMIN] 16 BRMIN 16 BRMIN (09/10/15 2:42 AM) (09/09/15 11:06 PM) Peripheral Pulse Rate [60-100 bpm] 68 bpm (09/09/15 11:06 PM) Weight 90.909 kg (09/09/15 11:06 PM) Body Mass Index 31.39 m2 (09/09/15 11:06 PM) Problem List Condition Effective Dates Status Health Status Informant Migraines(Confirmed) Resolved Allergies, Adverse Reactions, Alerts Substance Reaction Severity Status Compazine Reglan Active Reglan Reglan Active Toradol Active Zofran iv form Active Medications NS (Bolus) IV 1,000 mL, 1,000 ml/hr, Infuse Over: 1 hr, Route: IV, ONCE, Priority: STAT, Dosing Weight 90.909 kg, Start date: 09/10/15 0:44:00, Duration: 1 doses or times, Stop date: 09/10/15 0:44:00 Start Date: 09/10/15 Stop Date: 09/10/15 Status: CompletedPhenergan 25 mg, Route: IVPB, ONCE, Dosing Weight 90.909, kg, Priority: STAT, Start date: 09/10/15 0:45:00, Stop date: 09/10/15 0:45:00 Start Date: 09/10/15 Stop Date: 09/10/15 Status: DiscontinuedPhenergan 25 mg, Route: OH, ONCE, Dosing Weight 90.909, kg, Start date: 09/10/15 1:03:00, Stop date: 09/10/15 1:03:00 Start Date: 09/10/15 Stop Date: 09/10/15 Status: CompletedPhenergan 50 mg, Route: OH, ONCE, Dosing Weight 90.909, kg, Start date: 09/10/15 0:59:00, Stop date: 09/10/15 0:59:00 Start Date: 09/10/15 Stop Date: 09/10/15 Status: Discontinued Results URINE AND STOOL Most recent to oldest [Reference Range]: 1 UA Turbidity [Clear] Clear (09/10/15 12:55 AM) UA Color [Yellow] Yellow *NA* (09/10/15 12:55 AM) UA pH [5.0-8.0] 6.0 (09/10/15 12:55 AM) UA Spec Grav [<=1.030] 1.017 (09/10/15 12:55 AM) UA Glucose [Negative mg/dL] Negative mg/dL *NA* (09/10/15 12:55 AM) UA Blood [Negative] Negative (09/10/15 12:55 AM) UA Ketones Negative *NA* (09/10/15 12:55 AM) UA Protein [Negative mg/dL] Negative mg/dL (09/10/15 12:55 AM) UA Urobilinogen [0.1-1.0 mg/dL] <=1.0 mg/dL *NA* (09/10/15 12:55 AM) UA Bili [Negative] Negative *NA* (09/10/15 12:55 AM) UA Leuk Est [Negative] Negative (09/10/15 12:55 AM) UA Nitrite [Negative] Negative (09/10/15 12:55 AM) UA WBC [0-5 /HPF] <1 /HPF (09/10/15 12:55 AM) UA RBC [0-2 /HPF] <1 /HPF (09/10/15 12:55 AM) UA Sq Epi [Few /LPF] Moderate /LPF *ABN* (09/10/15 12:55 AM) UA Mucus [None Seen /LPF] Few /LPF *NA* (09/10/15 12:55 AM) Immunizations No data available for this section Procedures No data available for this section Social History Social History Type Response Smoking Status Never smoker; Exposure to Tobacco Smoke None; Cigarette Smoking Last 365 Days No; Reg Smoking Cessation Counseling No Assessment and Plan No data available for this section
--- OUTSIDE RECORDS SUMMARY | 2018-11-07 05:57 | XMS REPORT | Continuity of Care Document ---
:1985 Author Organization Interface Problems Problem Status Onset Classification Date Comments Source Date Reported Vaginal delivery Active 02/07/20 Problem 02/12/2016 [place] [address] City LEAKING Active 02/06/20 [facility] FLUID/39WKS 16 [facility] SWELLING Active 02/03/20 [facility] HEADACHE/38WKS 16 City Discharge 02/03/20 02/06/2016 [facility] Diagnosis: Leg 16 [facility] swelling in Discharge 02/03/20 02/06/2016 [facility] Diagnosis: [address] [place] [address] Headache in , antepartum Active 02/03/20 Problem 02/12/2016 [place] [address] City Discharge 09/10/19 09/13/2015 [facility] Diagnosis: [address] [place] [address] Migraine HEADACHE Active 09/09/[address] CHILDBIRTH Active 06/21/[address] Migraines Active Problem 02/12/2016 [facility] Resolved Problem 02/12/2016 [facility] Anxiety Active Problem 02/12/2016 [facility] Depression Active Problem 02/12/2016 [facility] Active Problem 02/12/2016 [facility] Final: 02/12/2016 [facility] conditions, unspecified, unspecified trimester Group B Active Problem 02/12/2016 [facility] Active [facility] CONDITIONS, UNSP, UNSP Medications Medication Details Route Status Patient Ordering Order Source Instructions Provider Date Acetaminophen 300 1 - 2 tab, PO, Active MG / Codeine Q4H, PRN Pain, 2015 [facility] Phosphate 30 MG X 3 day, # 20 [facility] Oral Tablet tab, 0 [Tylenol with Refill(s) Codeine #3] 1 tab, Route: No Longer Multivitamins oral PO, Drug Form: Active 2015 [facility] tablet TAB, Dosing [facility] Weight 104.545, kg, Daily, Start date: 02/08/16 9:00:00 CDT, Duration: 30 day, Stop date: 03/08/16 9:00:00 CDT Ibuprofen 600 mg, 1 tab, No Longer Route: PO, Drug Active 2015 [facility] form: TAB, Q6H, [facility] Dosing Weight 104.545, kg, Start date: 02/08/16 6:00:00 CDT, Duration: 30 day, Stop date: 03/09/16 0:00:00 CDTNotes: (Same as: Cesar) "Do Not Crush" Take with food. M-M-R II 0.5 mL, Route: No Longer SUB-Q, Drug Active 2015 [facility] Form: PDR/INJ, [facility] Dosing Weight 104.545, kg, ONCALL, Give only if patient rubella non-immune, Start date: 02/08/16 4:00:00 CDT, Duration: 1 doses or timesNotes: (Same as: M-M-R II) (measles-mumps- rubella virus vaccine 0.5 ml INJ VL) WASTE: F/P - Red; E -Red GIVE PRIOR TO DISCHARGE 0.5 ML Bordetella 0.5 mL, Route: No Longer pertussis IM, Drug Form: Active 2015 [facility] filamentous SUSP, Dosing [facility] hemagglutinin Weight 104.545, vaccine, kg, ONCALL, inactivated 0.01 Start date: MG/ML / Bordetella 02/08/16 pertussis fimbriae 4:00:00 CDT, 2/3 vaccine, Duration: 1 inactivated 0.01 doses or MG/ML / Bordetella timesNotes: pertussis (Tdap ) For pertactin vaccine, Adolecent and inactivated 0.006 Adult use For MG/ML / Bordetella IM Use. Same pertussis toxoid as: Adacel vacci (Tdap) Acetaminophen 325 1 tab, Route: No Longer MG / Hydrocodone PO, Drug Form: Active 2015 [facility] Bitartrate 5 MG TAB, Dosing [facility] Oral Tablet Weight 104.545, kg, Q4H, PRN Pain Score 4-6, Start date: 02/08/16 3:14:00 CDT, Duration: 30 day, Stop date: 03/09/16 3:13:00 CDTNotes: (Same as: [place] 325/5) Do not exceed 4gm/day of acetaminophen. Acetaminophen 325 1 tab, Route: No Longer MG / Hydrocodone PO, Drug Form: Active 2015 [facility] Bitartrate 10 MG TAB, Dosing [facility] Oral Tablet Weight 104.545, kg, Q4H, PRN Pain Score 7-10, Start date: 02/08/16 3:14:00 CDT, Duration: 30 day, Stop date: 03/09/16 3:13:00 CDTNotes: Do not exceed 4gm/day of acetaminophen. (Same as: [place] 325/10) Ondansetron 4 mg, 2 mL, No Longer Route: IVP, [facility] 2015 [facility] Drug form: INJ, [facility] Q8H, Dosing Weight 104.545, kg, PRN Nausea & Vomiting, Start date: 02/08/16 3:14:00 CDT, Duration: 30 day, Stop date: 03/09/16 3:13:00 CDTNotes: (Same as: Ellie) MEDICATION WASTE Product Size: 4 mg Product Wasted: ___ mg Oxytocin 0.06 30 unit, 500 No Longer UNT/ML Injectable mL, Rate: 42 [facility] 2015 [facility] Solution ml/hr, Infuse [facility] over: 11.9 hr, Dosing Weight 104.545, kg, Route: IV, Total Volume: 500 mL, Start date: 02/08/16 3:14:00 CDT, Duration: 2 doses or times, Stop date: 02/09/16 3:01:00 CDT, Replace Every: 11.9 hrNotes: Pitocin 30 units in LR 500 mL Docusate 100 mg, 1 cap, No Longer Route: PO, Drug [facility] 2015 [facility] form: CAP, BID, [facility] Dosing Weight 104.545, kg, PRN Constipation, Start date: 02/08/16 3:14:00 CDT, Duration: 30 day, Stop date: 03/09/16 3:13:00 CDTNotes: (Same as: Colace) (Do Not Crush) Bisacodyl 15 mg, 3 tab, No Longer Route: PO, Drug Active 2015 [facility] form: ECTAB, [facility] Daily, Dosing Weight 104.545, kg, PRN Other -See Comment, Start date: 02/08/16 3:14:00 CDT, Duration: 30 day, Stop date: 03/09/16 3:13:00 CDTNotes: (Same As: Dulcolax, Correctol) (Do Not Crush) "Do Not Crush" Lactated Ringers 1,000 mL, Rate: No Longer 1,000 mL 100 ml/hr, Active 2015 [facility] Infuse over: 10 City hr, Route: IV, Dosing Weight 104.545 kg, Total Volume: 1,000, Start date: 02/08/16 3:14:00 CDT, Duration: 30 day, Stop date: 03/09/16 3:13:00 CDT zolpidem 5 mg, Route: Inactive PO, Drug form: 2015 [facility] TAB, Bedtime, [facility] Dosing Weight 104.545, kg, PRN Sleep, Start date: 02/08/16 3:14:00 CDT, Duration: 30 day, Stop date: 03/09/16 3:13:00 CDT Benzocaine 200 1 spray, Route: No Longer MG/ML Topical TOP, PRN, Drug Active 2015 [facility] [place] [Dermoplast] form: SPRY, PRN City Irritation, Start date: 02/08/16 3:14:00 CDT, Duration: 30 day, Stop date: 03/09/16 3:13:00 CDTNotes: (Same As: Dermoplast) WASTE: Aerosol - Return to Pharmacy FOR EXTERNAL USE ONLY Methylergonovine 0.2 mg, 1 mL, No Longer Route: IM, Drug Active 2015 [facility] form: INJ, PRN, [facility] Dosing Weight 104.545, kg, PRN Other -See Comment, Start date: 02/08/16 3:14:00 CDT, Duration: 30 day, Stop date: 03/09/16 3:13:00 CDTNotes: (Same as:Methergine) lanolin topical 1 appl, Route: No Longer TOP, PRN, Drug Active 2015 [facility] form: OINT, PRN [facility] Other -See Comment, Start date: 02/08/16 3:14:00 CDT, Duration: 30 day, Stop date: 03/09/16 3:13:00 CDTNotes: (Same as:Lanolin) Ampicillin 2 gm, Route: Inactive IVPB, ABXQ6H, 2015 [facility] Dosing Weight [facility] 104.545, kg, Start date: 02/07/16 22:00:00 CDT, Duration: 30 day, Stop date: 03/08/16 16:00:00 CDT Ampicillin 2 gm, Route: Inactive IVPB, ONCE, 2015 [facility] Dosing Weight [facility] 104.545, kg, Start date: 02/07/16 21:45:00 CDT, Stop date: 02/07/16 21:45:00 CDTNotes: (Same as: Flor) MEDICATION WASTE Product Size: 2000 mg Product Wasted: ___ mg Ampicillin 4 gm, Route: Inactive IV, ONCE, 2015 [facility] Dosing Weight [facility] 104.545, kg, Start date: 02/07/16 21:42:00 CDT, Stop date: 02/07/16 21:42:00 CDT Gentamicin Sulfate 120 mg, 100 mL, Inactive ([facility]) Route: IV, Drug 2015 [facility] form: INJ, City ONCE, Dosing Weight 104.545, kg, Start date: 02/07/16 21:28:00 CDT, Stop date: 02/07/16 21:28:00 CDTNotes: TIME CRITICAL MEDICATION (Same as Garamycin) Fioricet 1 tab, Route: No Longer PO, Drug Form: Active 2015 [facility] TAB, Dosing City Weight 104.545, kg, Q4H, PRN Headache 1-5, Start date: 02/07/16 14:01:00 CDT, Duration: 30 day, Stop date: 03/08/16 14:00:00 CDTNotes: (acetaminophen- butalbital-caff eine 325-50-40mg) Do not exceed 4 gm/day of acetaminophen. (Same as: Esgic, Fioricet) Phenergan 12.5 mg, 50 mL, No Longer Route: IVPB, Active [address] [place] [address] Drug form: City SOLN, Q6H, Dosing Weight 104.545, kg, PRN Nausea & Vomiting, Start date: 02/07/16 8:36:00 CDT, Duration: 30 day, Stop date: 03/08/16 8:35:00 CDT Sodium Chloride 25 mL, Route: No Longer 0.9% IV IV, Start date: Active 2015 [place] 02/07/16 [facility] 8:08:00 CDT, Duration: 30 day, Stop date: 03/08/16 8:07:00 CDT, PRN Line Flush BD Normal Saline 5 mL, Route: No Longer Flush IV, Drug Form: Active 2015 [place] INJ, PRN, PRN [facility] Line Flush, Start date: 02/07/16 8:08:00 CDT, Duration: 30 day, Stop date: 03/08/16 8:07:00 CDTNotes: (Same as: BD Posiflush) Benadryl 25 mg, 0.5 mL, Inactive Route: IVP, 2015 [place] Drug form: INJ, City ONCE, Dosing Weight 104.545, kg, PRN Itching, Start date: 02/07/16 7:45:00 CDTNotes: (Same as: Benadryl) Remove - 1 ea, Route: No Longer dinoprostone VAG, Drug Form: [place] (Cervidil) insert INS, Dosing City Weight 104.545, kg, ONCALL, Start date: 02/07/16 7:00:00 CDT, Duration: 30 day, Stop date: 03/08/16 6:59:00 CDTNotes: Vaginal insert: to be removed 1 hour prior to oxytocin administration or 12 hours after insertion. Gentamicin Sulfate 80 mg, 100 mL, No Longer ([facility]) Route: IVPB, Active 2015 [place] Drug form: INJ, [facility] ABXQ8H, Dosing Weight 104.545, kg, Start date: 02/07/16 5:00:00 CDT, Duration: 30 day, Stop date: 03/07/16 21:00:00 CDTNotes: TIME CRITICAL MEDICATION (Same as Garamycin) Bupivacaine Route: Inactive Hydrochloride 2.5 EPIDURAL, Drug 2015 [place] MG/ML / Form: INJ, [facility] Epinephrine 0.005 Dosing Weight MG/ML Injectable 104.545, kg, Solution ONCE, Start date: 02/07/16 4:46:00 CDT, Stop date: 02/07/16 4:46:00 CDTNotes: (bupivacaine-ep i 0.25%-1:200,000 30 ml VL) Not for use in continuous infusion. (Same As: Marcaine w/Epi) Bupivacaine / Route: No Longer Fentanyl EPIDURAL, Active 2015 [facility] Rate: 8, ml/hr, Infusion site: Lumbar, [employer]CH[employer]ICIAN dose 3 mL, [employer]ALL[employer]CH[employer]ICIAN dose lockout: 10 minutes, 1 Hour limit: 30 mL, Clinician Bolus: 5 mL, 200, mL, Start date: 02/07/16 4:46:00 CDT, Duration: 30, day, Drug Form: INJ, Total volume: 200... Oxytocin 0.06 30 unit, 500 Inactive UNT/ML Injectable mL, Rate: 2015 [facility] Solution Titrate, Dosing [facility] Weight 104.545, kg, Route: IV, Total Volume: 500 mL, Start date: 02/07/16 3:44:00 CDT, Duration: 2 day, Stop date: 02/09/16 3:43:00 CDT, Replace Every: 12 hrNotes: Pitocin 30 units in LR 500 mL Buspar 15 mg, 1 tab, No Longer Route: PO, Drug Active 2015 [facility] form: TAB, [facility] Bedtime, Dosing Weight 104.545, kg, Start date: 02/06/16 21:00:00 CDT, Duration: 30 day, Stop date: 03/06/16 21:00:00 CDTNotes: (Same As: BuSpar) Penicillin G 2,500,000 unit, No Longer 50 mL, Route: Active 2015 [facility] IVPB, Drug [facility] form: INJ, ABXQ4H, Dosing Weight 104.545, kg, Start date: 02/06/16 20:00:00 CDT Famotidine 20 MG 20 mg, 1 tab, No Longer Oral Tablet Route: PO, Drug Active 2015 [facility] [Pepcid] form: TAB, [facility] Q12H, Dosing Weight 104.545, kg, PRN Heartburn, Start date: 02/06/16 19:03:00 CDT, Duration: 30 day, Stop date: 03/07/16 19:02:00 CDTNotes: (Same as: Pepcid) Ambien 5 mg, 1 tab, No Longer Route: PO, Drug [facility] 2015 [facility] form: TAB, [facility] Bedtime, Dosing Weight 104.545, kg, PRN Insomnia, Start date: 02/06/16 18:39:00 CDT, Duration: 30 day, Stop date: 03/07/16 18:38:00 CDTNotes: (Same As: Ambien) Cervidil 10 mg, 1 supp, Inactive Route: VAG, 2015 [facility] Drug form: [facility] SUPP, ONCE, Dosing Weight 104.545, kg, Start date: 02/06/16 18:38:00 CDT, Duration: 1 doses or times, Stop date: 02/06/16 18:38:00 CDTNotes: (Same as: Cervidil) Misoprostol 1,000 No Longer microgram, 5 Active 2015 [facility] tab, Route: [place], [facility] Drug form: TAB, ONCALL, Dosing Weight 104.545, kg, Start date: 02/06/16 16:00:00 CDT, Duration: 1 doses or times, Stop date: 03/08/16 0:00:00 CDTNotes: (Same as:Cytotec) Take with food Methylergonovine 0.2 mg, 1 mL, No Longer Route: IM, Drug [facility] 2015 [facility] form: INJ, [facility] ONCALL, Dosing Weight 104.545, kg, Start date: 02/06/16 16:00:00 CDT, Duration: 30 day, Stop date: 03/07/16 15:59:00 CDTNotes: (Same as:Methergine) Famotidine 20 mg, 2 mL, No Longer Route: IVP, [facility] 2015 [facility] Drug form: INJ, [facility] ONCALL, Dosing Weight 104.545, kg, Start date: 02/06/16 16:00:00 CDT, Duration: 30 day, Stop date: 03/07/16 15:59:00 CDTNotes: (Same as: Pepcid) Can be dilute in 5-10cc NS IVP: Slow IV push over at least 2 minutes. Carboprost 250 microgram, No Longer 1 mL, Route: Active 2015 [facility] IM, Drug form: [facility] INJ, ONCALL, Dosing Weight 104.545, kg, Start date: 02/06/16 16:00:00 CDT, Duration: 30 day, Stop date: 03/07/16 15:59:00 CDTNotes: (Same As: Hemabate) Citric Acid / 30 mL, Route: No Longer sodium citrate PO, Drug Form: Active 2015 [facility] SOLN, Dosing City Weight 104.545, kg, ONCALL, Start date: 02/06/16 16:00:00 CDT, Duration: 30 day, Stop date: 03/07/16 15:59:00 CDTNotes: (Same As: Bicitra, Cytra-2) Sodium citrate-citric acid (500-334 mg/5 mL): 1 mL contains sodium 1 mEq/mL and bicarbonate 1 mEq/mL Penicillin G 5,000,000 unit, Inactive Potassium [id number] Route: IVPB, 2015 [facility] UNT/ML Injectable ONCALL, Dosing City Solution Weight 104.545, kg, Start date: 02/06/16 16:00:00 CDTNotes: (Same as: Pfizerpen) MEDICATION WASTE Product Size: 5,000,000 unit Product Wasted: ___ unit Butorphanol 2 mg, 2 mL, No Longer Route: IVP, Active 2015 [place] Drug form: INJ, City Q2H, Dosing Weight 104.545, kg, PRN Pain Score 7-10, Start date: 02/06/16 15:23:00 CDT, Duration: 30 day, Stop date: 03/07/16 15:22:00 CDTNotes: (Same As: Stadol) Lidocaine 20 mL, Route: No Longer Hydrochloride 10 PERCUT, Drug Active 2015 [facility] MG/ML Injectable Form: INJ, City Solution Dosing Weight 104.545, kg, PRN, PRN Other -See Comment, Start date: 02/06/16 15:23:00 CDT, Duration: 1 doses or times, Stop date: 03/08/16 0:00:00 CDTNotes: Preservative free. (Same as: Xylocaine MPF) Ondansetron 4 mg, 2 mL, No Longer Route: IVP, [address] Drug form: INJ, City Q8H, Dosing Weight 104.545, kg, PRN Nausea & Vomiting, Start date: 02/06/16 15:23:00 CDT, Duration: 30 day, Stop date: 03/07/16 15:22:00 CDTNotes: (Same as: Ellie) MEDICATION WASTE Product Size: 4 mg Product Wasted: ___ mg Terbutaline 0.25 mg, 0.25 No Longer mL, Route: Active 2015 [facility] SUB-Q, Drug [facility] form: INJ, PRN, Dosing Weight 104.545, kg, PRN Other -See Comment, Start date: 02/06/16 15:23:00 CDT, Duration: 1 doses or times, Stop date: 03/08/16 0:00:00 CDTNotes: DO NOT USE IN WELDING MACHINE TENDER AREA (Same As: Homero) Acetaminophen 325 2 tab, Route: No Longer MG / Hydrocodone PO, Drug Form: [facility] 2015 [facility] Bitartrate 5 MG TAB, Dosing [facility] Oral Tablet Weight 104.545, kg, Q4H, PRN Pain Score 7-10, Start date: 02/06/16 15:23:00 CDT, Duration: 30 day, Stop date: 03/07/16 15:22:00 CDTNotes: (Same as: [place] 325/5) Do not exceed 4gm/day of acetaminophen. Ibuprofen 600 mg, 1 tab, No Longer Route: PO, Drug [address] form: TAB, Q6H, [facility] Dosing Weight 104.545, kg, PRN Other -See Comment, Start date: 02/06/16 15:23:00 CDT, Duration: 30 day, Stop date: 03/07/16 15:22:00 CDTNotes: (Same as: Motrin) "Do Not Crush" Take with food. Calcium Chloride 1,000 mL, 1,000 No Longer 0.0014 MEQ/ML / ml/hr, Infuse [address] Potassium Chloride Over: 1 hr, [facility] 0.004 MEQ/ML / Route: IV, Sodium Chloride 1,000, Drug 0.103 MEQ/ML / form: INJ, Sodium Lactate ONCE, Dosing 0.028 MEQ/ML Weight 104.545 Injectable kg, Start date: Solution 02/06/16 15:23:00 CDT, Stop date: 02/06/16 15:23:00 CDT, Bolus for regional anesthesia per unit protocol Lactated Ringers 1,000 mL, Rate: No Longer 1,000 mL 125 ml/hr, Active 2015 [facility] Infuse over: 8 City hr, Route: IV, Dosing Weight 104.545 kg, Total Volume: 1,000, Start date: 02/06/16 15:23:00 CDT, Duration: 30 day, Stop date: 03/07/16 15:22:00 CDT Oxytocin 0.06 30 unit, 500 No Longer UNT/ML Injectable mL, Rate: 42 Active 2015 [facility] Solution ml/hr, Infuse [facility] over: 11.9 hr, Dosing Weight 104.545, kg, Route: IV, Total Volume: 500 mL, Start date: 02/06/16 15:23:00 CDT, Duration: 2 day, Stop date: 02/08/16 15:22:00 CDT, Replace Every: 11.9 hrNotes: Pitocin 30 units in LR 500 mL Acetaminophen 325 1 tab, PO, Q6H, Active MG / Hydrocodone 0 Refill(s) 2015 [facility] Bitartrate 5 MG [facility] Oral Tablet Ondansetron 4 MG 4 mg=1 tab, PO, Active Oral Tablet Q8H, 0 2015 [facility] [Zofran] Refill(s) [facility] Lunesta PO, Bedtime, 0 Active Refill(s) 2015 [facility] Buspar PO, TID, 0 Active Refill(s) 2015 [facility] Cymbalta PO, 0 Refill(s) Active 2015 [facility] Cholecalciferol 1 tab, CHEW, Active 400 UNT / Folic Daily, 0 2015 [facility] Acid 1 MG / Refill(s) [facility] pyridoxine 2 MG / Riboflavin 1.7 MG / Vitamin B 12 0.008 MG Chewable Tablet Phenergan 25 mg, Route: Inactive [place], ONCE, 2015 [facility] Dosing Weight [facility] 90.909, kg, Start date: 09/10/15 1:03:00, Stop date: 09/10/15 1:03:00 Phenergan 50 mg, Route: Inactive [place], ONCE, 2015 [facility] Dosing Weight [facility] 90.909, kg, Start date: 09/10/15 0:59:00, Stop date: 09/10/15 0:59:00 Phenergan 25 mg, Route: Inactive IVPB, ONCE, 2015 [facility] Dosing Weight [facility] 90.909, kg, Priority: STAT, Start date: 09/10/15 0:45:00, Stop date: 09/10/15 0:45:00 Sodium Chloride 1,000 mL, 1,000 Inactive 0.154 MEQ/ML ml/hr, Infuse 2015 [facility] Injectable Over: 1 hr, [facility] Solution Route: IV, ONCE, Priority: STAT, Dosing Weight 90.909 kg, Start date: 09/10/15 0:44:00, Duration: 1 doses or times, Stop date: 09/10/15 0:44:00 Allergies, Adverse Reactions, Alerts Substance Category Reaction Severity Reaction Status Date Comments Source type Reported Compazine Assertion Reglan, Drug Active Reglan allergy [facility] Reglan Assertion Drug Active [facility] Toradol Assertion Drug Active allergy [facility] Zofran Assertion iv form Drug Active [facility] Immunizations Immunization Date Given Site Status Last Updated Comments Source Results Order Name Results Value Reference Date Interpretation Comments Source Range HEMATOLOGY Hgb 10.0 g/dL 12.0 - 02/07 16.0 [facility] HEMATOLOGY Hct 29.3 % 36.0 - 02/07 48.0 [facility] BLOOD BANK RBC product Product available 02/07 RESULTS /2015 [facility] (02/07/16 9:55 PM) [facility] URINE AND UA <=1.0 0.1 - 1.0 02/06 STOOL Urobilinogen mg/dL /2015 [facility] URINE AND UA Mucus Few /LPF None Seen 02/06 STOOL /LPF /2015 [facility] URINE AND UA RBC 2 /HPF 0 - 2 02/06 STOOL /2015 [facility] URINE AND UA WBC 39 /HPF 0 - 5 02/06 STOOL /2015 [facility] URINE AND UA Sq Epi Moderate Few /LPF 02/06 STOOL /LPF /2015 [facility] URINE AND UA Ketones Negative 02/06 STOOL [facility] URINE AND UA Glucose 50mg/dl 02/06 STOOL [facility] URINE AND UA Bacteria Occasional None Seen 02/06 STOOL /HPF /HPF [facility] URINE AND UA Nitrite Negative Negative 02/06 STOOL [facility] Blood Moderate Negative 02/06 STOOL [facility] *ABN* [facility] (02/06/16 9:54 PM) URINE AND UA Leuk Est Large Negative 02/06 [facility] *ABN* [facility] (02/06/16 9:54 PM) URINE AND UA Turbidity Slight Clear 02/06 STOOL [facility] (02/06/16 9:54 PM) URINE AND UA Color Light Yellow Yellow 02/06 [facility]* [facility] (02/06/16 9:54 PM) URINE AND UA Spec Grav 1.020 <=1.030 02/06 STOOL [facility] URINE AND UA Bili Negative Negative 02/06 [facility] (02/06/16 9:54 PM) URINE AND UA Protein Negative Negative 02/06 STOOL mg/dL mg/dL [facility] URINE AND UA pH 5.0 5.0 - 8.0 02/06 STOOL [facility] BLOOD BANK Rhig Reqd See Note 1 02/05 Result Comment: 02/06/2016 17:23 [id number] RESULTS /2015 This patient is not a candidate for Rh(O)D immune globulin. [facility] (02/06/16 3:46 PM) [facility] BLOOD BANK Antibody Negative 02/05 RESULTS Scrn /2015 [facility] (02/06/16 3:46 PM) [facility] BLOOD BANK ABO/Rh O POS 02/05 RESULTS /2015 [facility] CHEM PANEL A/G Ratio 0.8 0.7 - 1.6 02/05 /2015 [facility] CHEM PANEL Globulin 3.3 g/dL 2.7 - 4.2 02/05 [facility] CHEM PANEL AGAP 17.1 meq/L 10.0 - 02/05 20.0 [facility] CHEM PANEL B/C Ratio 9 6 - 25 02/05 [facility] CHEM PANEL Bili Total 0.3 mg/dL 0.2 - 1.3 02/05 [facility] CHEM PANEL Total 6.1 g/dL 6.4 - 8.4 02/05 [facility] CHEM PANEL Alk Phos 162 unit/L 39 - 136 02/05 [facility] CHEM PANEL BUN 9 mg/dL 7 - 22 02/05 [facility] CHEM PANEL Glucose Lvl 93 mg/dL 70 - 99 02/05 [facility] CHEM PANEL Sodium Lvl 141 meq/L 135 - 145 02/05 [facility] CHEM PANEL Chloride Lvl 106 meq/L 95 - 109 02/05 [facility] CHEM PANEL Potassium 4.1 meq/L 3.5 - 5.1 02/05 MH Lvl [facility] CHEM PANEL CO2 22 meq/L 24 - 32 02/05 [facility] CHEM PANEL Calcium Lvl 8.8 mg/dL 8.5 - 10.5 02/05 [facility] CHEM PANEL Albumin Lvl 2.8 g/dL 3.5 - 5.0 02/05 [facility] CHEM PANEL eGFR 75 02/05 Result Comment: The eGFR is calculated using the CKD-EPI formula. In most young, healthy individuals the eGFR will be >90 mL/ min/1.73m2. The eGFR declines with age. An eGFR of 60-89 may be normal in mL/min/1.7 some populations, particularly the elderly, for whom the CKD-EPI formula has not been extensively validated. Use of the eGFR is not recommended in the following populations: [address] Individuals with unstable creatinine concentrations, including patients and those with serious co-morbid conditions. Patients with extremes in muscle mass or diet. The data above are obtained from the National Kidney Disease Education Program (NKDEP) which additionally recommends that when the eGFR is used in patients with extremes of body mass index for purposes of drug dosing, the eGFR should be multiplied by the estimated BMI. CHEM PANEL ALT 18 unit/L 0 - 65 02/05 [facility] CHEM PANEL AST 23 unit/L 0 - 37 02/05 [facility] CHEM PANEL Creatinine 1.02 mg/dL 0.50 - 02/05 Lvl 1.40 /2015 [facility] HEMATOLOGY Platelet 258 K/CMM 133 - 450 02/05 [facility] HEMATOLOGY MCH 28.8 pg 27.0 - 08/18 MH 31.0 /2015 [facility] HEMATOLOGY RBC 4.05 M/CMM 4.20 - 02/05 MH 5.40 /2015 [facility] HEMATOLOGY Hgb 11.7 g/dL 12.0 - 02/05 MH 16.0 /2015 [facility] HEMATOLOGY MPV 8.2 fL 7.4 - 10.4 02/05 /2015 [facility] HEMATOLOGY MCV 86.3 fL 80.0 - 02/05 MH 98.0 /2015 [facility] HEMATOLOGY RDW 14.0 % 11.5 - 02/05 MH 14.5 /2015 [facility] HEMATOLOGY MCHC 33.3 g/dL 32.0 - 02/05 MH 36.0 /2015 [facility] HEMATOLOGY WBC 8.4 K/CMM 3.7 - 10.4 02/05 /2015 [facility] HEMATOLOGY Hct 35.0 % 36.0 - 02/05 MH 48.0 [facility] HEMATOLOGY Basophils # 0.0 K/CMM 0.0 - 0.2 02/05 [facility] HEMATOLOGY Eosinophils 0.1 K/CMM 0.0 - 0.5 02/05 MH # /2015 [facility] HEMATOLOGY Monocytes # 0.5 K/CMM 0.0 - 0.8 02/05 [facility] HEMATOLOGY Lymphocytes 17.7 % 20.0 - 02/05 MH 40.0 [facility] HEMATOLOGY Monocytes 6.2 % 2.0 - 12.0 02/05 [facility] HEMATOLOGY Lymphocytes 1.5 K/CMM 1.0 - 5.5 02/05 MH # /2015 [facility] HEMATOLOGY Segs-Bands # 6.3 K/CMM 1.5 - 8.1 02/05 [facility] HEMATOLOGY Segs 75.1 % 45.0 - 02/05 MH 75.0 [facility] HEMATOLOGY Eosinophils 0.6 % 0.0 - 4.0 02/05 [facility] HEMATOLOGY Basophils 0.4 % 0.0 - 1.0 02/05 [facility] IMMUNOLOGY Treponemal Non Reactive Non 02/05 MH Scr Reactive /2015 [facility]* [facility] (02/06/16 3:46 PM) IMMUNOLOGY Hep Bs Ag Negative Negative 02/05 [facility]* [facility] (02/06/16 3:46 PM) IMMUNOLOGY HIV. Negative Negative 02/05 [facility]* [facility] (02/06/16 3:46 PM) ELECTROLYTE Chloride Lvl 107 meq/L 95 - 109 02/02 [facility] ELECTROLYTE Calcium Lvl 8.6 mg/dL 8.5 - 10.5 02/02 [facility] ELECTROLYTE CO2 21 meq/L 24 - 32 02/02 [facility] ELECTROLYTE BUN 9 mg/dL 7 - 22 02/02 [facility] ELECTROLYTE Potassium 4.0 meq/L 3.5 - 5.1 02/02 S Lvl [facility] ELECTROLYTE Sodium Lvl 140 meq/L 135 - 145 02/02 [facility] ELECTROLYTE Albumin Lvl 2.7 g/dL 3.5 - 5.0 02/02 [facility] ELECTROLYTE Glucose Lvl 69 mg/dL 70 - 99 02/02 [facility] ELECTROLYTE eGFR 127 02/02 Result Comment: The eGFR is calculated using the CKD-EPI formula. In most young, healthy individuals the eGFR will be > 90 mL/min/1.73m2. The eGFR declines with age. An eGFR of 60-89 may be normal in mL/min/1.7 some populations, particularly the elderly, for whom the CKD-EPI formula has not been extensively validated. Use of the eGFR is not recommended in the following populations: [address] Individuals with unstable creatinine concentrations, including patients and those with serious co-morbid conditions. Patients with extremes in muscle mass or diet. The data above are obtained from the National Kidney Disease Education Program (NKDEP) which additionally recommends that when the eGFR is used in patients with extremes of body mass index for purposes of drug dosing, the eGFR should be multiplied by the estimated BMI. ELECTROLYTE Creatinine 0.56 mg/dL 0.50 - 02/02 S Lvl 1.40 [facility] ELECTROLYTE ALT 17 unit/L 0 - 65 02/02 [facility] ELECTROLYTE AST 19 unit/L 0 - 37 02/02 [facility] ELECTROLYTE Bili Total 0.2 mg/dL 0.2 - 1.3 02/02 [facility] ELECTROLYTE Alk Phos 153 unit/L 39 - 136 02/02 [facility] ELECTROLYTE Total 5.9 g/dL 6.4 - 8.4 08/15 MH S [facility] ELECTROLYTE AGAP 16.0 meq/L 10.0 - 02/02 MH S 20.0 /2015 [facility] ELECTROLYTE B/C Ratio 16 6 - 25 02/02 S [facility] ELECTROLYTE A/G Ratio 0.8 0.7 - 1.6 02/02 S /2015 [facility] ELECTROLYTE Globulin 3.2 g/dL 2.7 - 4.2 02/02 S [facility] HEMATOLOGY Basophils # 0.0 K/CMM 0.0 - 0.2 02/02 [facility] HEMATOLOGY Eosinophils 0.1 K/CMM 0.0 - 0.5 02/02 MH # /2015 [facility] HEMATOLOGY Monocytes # 0.7 K/CMM 0.0 - 0.8 02/02 [facility] HEMATOLOGY Lymphocytes 1.8 K/CMM 1.0 - 5.5 02/02 MH # /2015 [facility] HEMATOLOGY Segs-Bands # 7.2 K/CMM 1.5 - 8.1 02/02 [facility] HEMATOLOGY Basophils 0.4 % 0.0 - 1.0 02/02 [facility] HEMATOLOGY Eosinophils 0.8 % 0.0 - 4.0 02/02 [facility] HEMATOLOGY Monocytes 7.4 % 2.0 - 12.0 02/02 [facility] HEMATOLOGY Lymphocytes 18.1 % 20.0 - 02/02 MH 40.0 [facility] HEMATOLOGY Segs 73.3 % 45.0 - 02/02 MH 75.0 [facility] HEMATOLOGY Hct 34.0 % 36.0 - 02/02 MH 48.0 [facility] HEMATOLOGY MCHC 33.7 g/dL 32.0 - 02/02 MH 36.0 /2015 [facility] HEMATOLOGY MCH 29.0 pg 27.0 - 02/02 MH 31.0 [facility] HEMATOLOGY MCV 86.1 fL 80.0 - 02/02 MH 98.0 [facility] HEMATOLOGY Platelet 260 K/CMM 133 - 450 02/02 [facility] HEMATOLOGY RDW 14.1 % 11.5 - 02/02 MH 14. [facility] HEMATOLOGY MPV 8.2 fL 7.4 - 10.4 02/02 [facility] HEMATOLOGY Hgb 11.5 g/dL 12.0 - 02/02 MH 16.0 [facility] HEMATOLOGY RBC 3.95 M/CMM 4.20 - 02/02 MH 5.40 /2015 [facility] HEMATOLOGY WBC 9.9 K/CMM 3.7 - 10.4 02/02 [facility] URINE AND UA Color Straw 02/02 [facility] URINE AND UA <=1.0 0.1 - 1.0 02/02 STOOL Urobilinogen mg/dL [facility] URINE AND UA Ketones Negative 02/02 [facility] URINE AND UA RBC 1 /HPF 0 - 2 02/02 [facility] URINE AND UA Mucus Few /LPF None Seen 02/02 STOOL /LPF /2015 [facility] URINE AND UA Blood Negative Negative 02/02 [facility] (02/03/16 5:50 PM) [facility] URINE AND UA Nitrite Negative Negative 02/02 [facility] (02/03/16 5:50 PM) [facility] URINE AND UA Bili Negative Negative 02/02 [facility] *NA* [facility] (02/03/16 5:50 PM) URINE AND UA Leuk Est Negative Negative 02/02 [facility] (02/03/16 5:50 PM) [facility] URINE AND UA Sq Epi Few /LPF Few /LPF 02/02 [facility] URINE AND UA WBC null 0 - 5 02/02 [facility] URINE AND UA Turbidity Clear Clear 02/02 [facility] (02/03/16 5:50 PM) [facility] URINE AND UA Spec Grav 1.012 <=1.030 02/02 [facility] URINE AND UA pH 5.0 5.0 - 8.0 02/02 [facility] URINE AND UA Protein Negative Negative 02/02 STOOL mg/dL mg/dL [facility] URINE AND UA Glucose Negative Negative 02/02 STOOL mg/dL mg/dL [facility] URINE CHEM U Protein 10.8 mg/dL 02/02 [facility] URINE CHEM U Prot/Creat 0.2 02/02 [facility] URINE CHEM U Creatinine 66.70 02/02 mg/dL [facility] URINE AND UA Protein Negative Negative 09/09 STOOL mg/dL mg/dL [facility] URINE AND UA Glucose Negative Negative 09/09 STOOL mg/dL mg/dL /2015 [facility] URINE AND UA RBC null 0 - 2 09/09 [facility] URINE AND UA <=1.0 0.1 - 1.0 09/09 STOOL Urobilinogen mg/dL [facility] URINE AND UA Ketones Negative 09/09 [facility] URINE AND UA Mucus Few /LPF None Seen 09/09 STOOL /LPF [facility] URINE AND UA Sq Epi Moderate Few /LPF 09/09 STOOL /LPF [facility] URINE AND UA WBC null 0 - 5 09/09 [facility] URINE AND UA Leuk Est Negative Negative 09/09 [facility] (09/10/15 12:55 AM) [facility] URINE AND UA Nitrite Negative Negative 09/09 [facility] (09/10/15 12:55 AM) [facility] URINE AND UA Bili Negative Negative 09/09 [facility] *NA* [facility] (09/10/15 12:55 AM) URINE AND UA Blood Negative Negative 09/09 [facility] (09/10/15 12:55 AM) [facility] URINE AND UA pH 6.0 5.0 - 8.0 09/09 [facility] URINE AND UA Spec Grav 1.017 <=1.030 09/09 [facility] URINE AND UA Turbidity Clear Clear 09/09 [facility] (09/10/15 12:55 AM) [facility] URINE AND UA Color Yellow Yellow 09/09 [facility] *NA* [facility] (09/10/15 12:55 AM) Vital Signs Vital Sign Value Date Comments Source Heart Rate 76 02/09/2016 [facility] Systolic (mm Hg) 111 02/09/2016 [facility] Diastolic (mm Hg) 65 02/09/2016 [facility] Respitory Rate 16 02/09/2016 [facility] Systolic (mm Hg) 130 02/09/2016 [facility] Diastolic (mm Hg) 77 02/09/2016 [facility] Respitory Rate 18 02/09/2016 [facility] Temperature Oral (F) 97.8 F 02/09/2016 [facility] Heart Rate 81 02/09/2016 [facility] Systolic (mm Hg) 119 02/08/2016 [facility] Diastolic (mm Hg) 76 02/08/2016 [facility] Respitory Rate 16 02/08/2016 [facility] Heart Rate 72 02/08/2016 [facility] Temperature Oral (F) 97.4 F 02/08/2016 [facility] Temperature Oral (F) 97.9 F 02/08/2016 [facility] Height 170.18 cm 02/06/2016 [facility] Weight 104.545 02/06/2016 [facility] BMI Calculated 36.1 02/06/2016 [facility] Systolic (mm Hg) 119 02/04/2016 [facility] Diastolic (mm Hg) 69 02/04/2016 [facility] Heart Rate 89 02/04/2016 [facility] Respitory Rate 18 02/04/2016 [facility] Respitory Rate 18 02/04/2016 [facility] Heart Rate 80 02/04/2016 [facility] Systolic (mm Hg) 120 02/04/2016 [facility] Diastolic (mm Hg) 71 02/04/2016 [facility] Systolic (mm Hg) 122 02/04/2016 [facility] Diastolic (mm Hg) 72 02/04/2016 [facility] Respitory Rate 18 02/04/2016 [facility] Heart Rate 93 02/04/2016 [facility] Height 170.18 cm 02/03/2016 [facility] BMI Calculated 36.1 02/03/2016 [facility] Weight 104.545 02/03/2016 [facility] Temperature Oral (F) 98.4 F 02/03/2016 [facility] Systolic (mm Hg) 116 09/10/2015 [facility] Diastolic (mm Hg) 72 09/10/2015 [facility] Respitory Rate 16 09/10/2015 [facility] BMI Calculated 31.39 09/10/2015 [facility] Weight 90.909 09/10/2015 [facility] Height 170.18 cm 09/10/2015 [facility] Respitory Rate 16 09/10/2015 [facility] Temperature Oral (F) 98.2 F 09/10/2015 [facility] Heart Rate 68 09/10/2015 [facility] Systolic (mm Hg) 122 09/10/2015 [facility] Diastolic (mm Hg) 70 09/10/2015 [facility] Encounters Location Location Encounter Encounter Reason Attending ADM DC Status Source Details Type Number For Provider Date Date Visit [facility] [id number] Rauvan 09/09 09/09 [facility]2015 [facility] Emergency [id number] Rolando 02/02 02/03 FRANK Truong /2015 [facility] Inpatient [id number] Brayan 02/05 02/09 FRNAK Kaur /2015 [facility] Procedures Procedure Code Date Perfomer Comments Source Dilation and [id number] [facility] Breast augmentation [id number] [facility] Nasal sinus [id number] [facility] Rhinoplasty [id number] [facility] Tonsillectomy [id number] [facility]
--- OUTSIDE RECORDS SUMMARY | 2018-11-07 05:58 | XMS REPORT ---
:1985 [facility] Address [address] [place] [address] Dr. Arrieta [address] [place] [id number] Care Team Providers Name Role Phone Unavailable Unavailable Unavailable Problems This patient has no known problems. Allergies, Adverse Reactions, Alerts This patient has no known allergies or adverse reactions. Medications This patient has no known medications.
--- OUTSIDE RECORDS SUMMARY | 2018-11-07 05:58 | XMS REPORT | Summary of Care ---
:1985 Author Organization [facility] Address [address] [place] [id number] Encounter HQ Zeferino(AASHISH) [id number] Date(s): 02/03/16 - 02/03/[address] [address]- Discharge Diagnosis: Leg swelling in Discharge Diagnosis: Headache in , antepartum Discharge Disposition: Home or Self Care Attending Physician: Rolando Truong MD Vital Signs Most recent to oldest 1 2 3 [Reference Range]: Height 170.18 cm (02/03/16 5:08 PM) Temperature Oral [96.4-99.1 98.4 DegF DegF] (02/03/16 5:08 PM) Blood Pressure [90-140/60-90 119/69 mmHg 120/71 mmHg 122/72 mmHg mmHg] (02/03/16 7:23 PM) (02/03/16 7:10 PM) (02/03/16 7:01 PM) Respiratory Rate [14-20 BRMIN] 18 BRMIN 18 BRMIN 18 BRMIN (02/03/16 7:23 PM) (02/03/16 7:10 PM) (02/03/16 7:01 PM) Peripheral Pulse Rate [60-100 89 bpm 80 bpm 93 bpm bpm] (02/03/16 7:23 PM) (02/03/16 7:10 PM) (02/03/16 7:01 PM) Weight 104.545 kg (02/03/16 5:08 PM) Body Mass Index 36.1 m2 (02/03/16 5:08 PM) Problem List Condition Effective Dates Status Health Status Informant (Confirmed) Resolved Anxiety(Confirmed) Active Depression(Confirmed) Active Migraines(Confirmed) Active (Confirmed) Active (Confirmed) 02/03/16 Active Allergies, Adverse Reactions, Alerts Substance Reaction Severity Status Compazine Reglan Active Reglan Reglan Active Toradol Active Zofran iv form Active Medications acetaminophen-hydrocodone 325 mg-5 mg oral tablet 1 tab, PO, Q6H, 0 Refill(s) Start Date: 02/03/16 Status: OrderedBuSpar PO, TID, 0 Refill(s) Start Date: 02/03/16 Status: OrderedCymbalta PO, 0 Refill(s) Start Date: 02/03/16 Status: OrderedLunesta PO, Bedtime, 0 Refill(s) Start Date: 02/03/16 Status: Orderedmultivitamin, Multivitamins with Folic Acid 1.4 mg oral tablet, chewable 1 tab, CHEW, Daily, 0 Refill(s) Start Date: 02/03/16 Status: OrderedZofran 4 mg oral tablet 4 mg=1 tab, PO, Q8H, 0 Refill(s) Start Date: 02/03/16 Status: Ordered Results ELECTROLYTES Most recent to oldest [Reference Range]: 1 Sodium Lvl [135-145 mEq/L] 140 mEq/L (02/03/16 5:50 PM) Potassium Lvl [3.5-5.1 mEq/L] 4.0 mEq/L (02/03/16 5:50 PM) Chloride Lvl [95-109 mEq/L] 107 mEq/L (02/03/16 5:50 PM) CO2 [24-32 mEq/L] 21 mEq/L *LOW* (02/03/16 5:50 PM) AGAP [10.0-20.0 mEq/L] 16.0 mEq/L (02/03/16 5:50 PM) CHEM PANEL Most recent to oldest [Reference Range]: 1 Creatinine Lvl [0.50-1.40 mg/dL] 0.56 mg/dL (02/03/16 5:50 PM) eGFR 127 mL/min/1.73m2 1 *NA* (02/03/16 5:50 PM) BUN [7-22 mg/dL] 9 mg/dL (02/03/16 5:50 PM) B/C Ratio [6-25] 16 (02/03/16 5:50 PM) Glucose Lvl [70-99 mg/dL] 69 mg/dL *LOW* (02/03/16 5:50 PM) Total Protein [6.4-8.4 g/dL] 5.9 g/dL *LOW* (02/03/16 5:50 PM) Albumin Lvl [3.5-5.0 g/dL] 2.7 g/dL *LOW* (02/03/16 5:50 PM) Globulin [2.7-4.2 g/dL] 3.2 g/dL (02/03/16 5:50 PM) A/G Ratio [0.7-1.6] 0.8 (02/03/16 5:50 PM) Calcium Lvl [8.5-10.5 mg/dL] 8.6 mg/dL (02/03/16 5:50 PM) ALT [0-65 unit/L] 17 unit/L (02/03/16 5:50 PM) AST [0-37 unit/L] 19 unit/L (02/03/16 5:50 PM) Alk Phos [39-136 unit/L] 153 unit/L *HI* (02/03/16 5:50 PM) Bili Total [0.2-1.3 mg/dL] 0.2 mg/dL (02/03/16 5:50 PM) 1Result Comment: The eGFR is calculated [...] should be multiplied by the estimated BMI.URINE CHEM Most recent to oldest [Reference Range]: 1 U Creatinine 66.70 mg/dL *NA* (02/03/16 5:50 PM) U Protein 10.8 mg/dL *NA* (02/03/16 5:50 PM) U Prot/Creat 0.2 *NA* (02/03/16 5:50 PM) URINE AND STOOL Most recent to oldest [Reference Range]: 1 UA Turbidity [Clear] Clear (02/03/16 5:50 PM) UA Color Straw *NA* (02/03/16 5:50 PM) UA pH [5.0-8.0] 5.0 (02/03/16 5:50 PM) UA Spec Grav [<=1.030] 1.012 (02/03/16 5:50 PM) UA Glucose [Negative mg/dL] Negative mg/dL *NA* (02/03/16 5:50 PM) UA Blood [Negative] Negative (02/03/16 5:50 PM) UA Ketones Negative *NA* (02/03/16 5:50 PM) UA Protein [Negative mg/dL] Negative mg/dL (02/03/16 5:50 PM) UA Urobilinogen [0.1-1.0 mg/dL] <=1.0 mg/dL *NA* (02/03/16 5:50 PM) UA Bili [Negative] Negative *NA* (02/03/16 5:50 PM) UA Leuk Est [Negative] Negative (02/03/16 5:50 PM) UA Nitrite [Negative] Negative (02/03/16 5:50 PM) UA WBC [0-5 /HPF] <1 /HPF (02/03/16 5:50 PM) UA RBC [0-2 /HPF] 1 /HPF (02/03/16 5:50 PM) UA Sq Epi [Few /LPF] Few /LPF *NA* (02/03/16 5:50 PM) UA Mucus [None Seen /LPF] Few /LPF *NA* (02/03/16 5:50 PM) HEMATOLOGY Most recent to oldest [Reference Range]: 1 WBC [3.7-10.4 K/CMM] 9.9 K/CMM (02/03/16 5:50 PM) RBC [4.20-5.40 M/CMM] 3.95 M/CMM *LOW* (02/03/16 5:50 PM) Hgb [12.0-16.0 g/dL] 11.5 g/dL *LOW* (02/03/16 5:50 PM) Hct [36.0-48.0 %] 34.0 % *LOW* (02/03/16 5:50 PM) MCV [80.0-98.0 fL] 86.1 fL (02/03/16 5:50 PM) MCH [27.0-31.0 pg] 29.0 pg (02/03/16 5:50 PM) MCHC [32.0-36.0 g/dL] 33.7 g/dL (02/03/16 5:50 PM) RDW [11.5-14.5 %] 14.1 % (02/03/16 5:50 PM) Platelet [133-450 K/CMM] 260 K/CMM (02/03/16 5:50 PM) MPV [7.4-10.4 fL] 8.2 fL (02/03/16 5:50 PM) Segs [45.0-75.0 %] 73.3 % (02/03/16 5:50 PM) Lymphocytes [20.0-40.0 %] 18.1 % *LOW* (02/03/16 5:50 PM) Monocytes [2.0-12.0 %] 7.4 % (02/03/16 5:50 PM) Eosinophils [0.0-4.0 %] 0.8 % (02/03/16 5:50 PM) Basophils [0.0-1.0 %] 0.4 % (02/03/16 5:50 PM) Segs-Bands # [1.5-8.1 K/CMM] 7.2 K/CMM (02/03/16 5:50 PM) Lymphocytes # [1.0-5.5 K/CMM] 1.8 K/CMM (02/03/16 5:50 PM) Monocytes # [0.0-0.8 K/CMM] 0.7 K/CMM (02/03/16 5:50 PM) Eosinophils # [0.0-0.5 K/CMM] 0.1 K/CMM (02/03/16 5:50 PM) Basophils # [0.0-0.2 K/CMM] 0.0 K/CMM (02/03/16 5:50 PM) Immunizations No data available for this section Procedures Procedure Date Related Diagnosis Body Site Dilation and curettage Social History Social History Type Response Smoking Status Never smoker; Exposure to Tobacco Smoke None; Cigarette Smoking Last 365 Days No; Reg Smoking Cessation Counseling No Assessment and Plan No data available for this section
[2018-11-07 06:27] LABS: Absolute Lymphocytes (CBC) 0.5 K/uL (0.7-4.9); Absolute Monocytes 0.4 K/uL (0.1-1.3); Basophils % 0.2 % (0-1.3); Eosinophils % 1.1 % (0-4.4); Hematocrit 43.7 % (36.0-45.0); Lymphocytes % 4.3 % (15.3-44.8); MPV 8.7 fL (7.6-11.3); Monocytes % 3.6 % (3.3-12.3)
[2018-11-07] MEDS ORDERED: PROMETHAZINE 25 MG/ML VIAL ONE (06:29)
[2018-11-07] MEDS ORDERED: MEPERIDINE HCL 25 MG/0.5 ML ONE (06:29)
[2018-11-07 06:34] LABS: Potassium 3.8 mmol/L (3.5-5.1)
[2018-11-07 06:49] LABS: Albumin 4.4 g/dL (3.4-5.0); Bilirubin Direct 0.2 mg/dL (0-0.2)
--- NOTE | 2018-11-07 07:10 | RAD REPORT ---
EXAM DESCRIPTION: CT - Abdomen Pelvis W Contrast - 11/07/2018 7:00 am CLINICAL HISTORY: Severe abdominal pain, vomiting COMPARISON: None. TECHNIQUE: Biphasic, helical CT imaging of the abdomen and pelvis was performed following 100 ml non -ionic IV contrast. No oral contrast administered. All CT scans are performed using dose optimization technique as appropriate and may include automated exposure control or mA/KV adjustment according to patient size. FINDINGS: No suspicious findings in the lung bases. No pericardial thickening or effusion. Liver size is normal. In the anterior right lobe a 14 millimeter round low-density mass is present. A ttenuation value is 48 Hounsfield units. This does not change between arterial and venous phase imagi ng. This may be an atypical cyst. No other liver lesions are seen. An aggressive or worrisome liver l esion is unlikely. No splenomegaly or focal splenic finding. No pancreatic mass or peripancreatic inflammatory stranding . Gallbladder and biliary tree are also without suspicious finding. Symmetric renal function is seen with no hydronephrosis or suspicious renal mass. No pyelonephritis o r acute parenchymal process. No bladder abnormalities. No adrenal abnormalities. Uterus and ovaries s how no suspicious findings. Small 18 millimeter right ovarian cyst is present. Fluid-filled stomach is present. No gastric dilatation, wall thickening mass. Small bowel loops are n ot dilated but there are several mildly prominent small bowel loops. No appendicitis findings. Modera te stool volume is present in the colon. No free air, pneumatosis or focal inflammatory stranding. There is trace amount of fluid adjacent t o the right ovary that may be from a ruptured follicle. No hernia, mass or bulky lymphadenopathy. No suspicious bony findings. IMPRESSION: No bowel obstruction, free air or surgically emergent finding. A few prominent nondilated small bowel loops are present favoring nonspecific gastroenteritis. Trace amount of fluid adjacent to the right ovary. This may be from a leaking or ruptured follicle. T his is not likely the source for patient pain. A 14 millimeter low-density mass in the liver is probably an atypical or complex cyst. Atypical heman gioma is possible. An aggressive liver lesion is very unlikely.
--- NOTE | 2018-11-07 07:22 | EDPHYS ---
Physician Documentation [facility] Name: Jennifer Uriostegui Age: 33 yrs Sex: Female : 1985 Arrival Date: 11/07/2018 Time: 05:54 Bed 18 Private MD: Arina Hill H ED Physician David Fairchild HPI: 11/07 06:26 This 33 yrs old Female presents to ER via Ambulatory with complaints of jr8 Vomiting, Flank Pain. 06:26 The patient presents to the emergency department with nausea, vomiting, abdominal pain. jr8 Onset: The symptoms/episode began/occurred acutely, last night. Possible causes: unknown. The symptoms are aggravated by nothing. The symptoms are alleviated by nothing. Associated signs and symptoms: The patient has no apparent associated signs or symptoms. Severity of symptoms: At their worst the symptoms were moderate in the emergency department the symptoms are unchanged. The patient has not experienced similar symptoms in the past. The patient has not recently seen a physician. Patient started with upper abdominal discomfort around 10 PM last night. Around 1 am started to vomit. Has had continued vomiting episodes and abdominal pain without relief. Denies fevers or diarrhea. 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 - Social history:: Smoking status: Patient/guardian denies using tobacco, Patient uses alcohol, occasionally. - Ebola Screening: : No symptoms or risks identified at this time. ROS: 06:26 Constitutional: Negative for fever, chills, and weight loss. jr8 06:26 Abdomen/GI: Positive for abdominal pain, nausea and vomiting, Negative for diarrhea, constipation, abdominal distension, hematemesis, black/tarry stool, rectal pain, rectal bleeding, bowel incontinence, flatulence. 06:26 All other systems are negative. Exam: 06:26 Eyes: Pupils equal round and reactive to light, extra-ocular motions intact. Lids and jr8 lashes normal. Conjunctiva and sclera are non-icteric and not injected. Cornea within normal limits. Periorbital areas with no swelling, redness, or edema. ENT: Nares patent. No nasal discharge, no septal abnormalities noted. Tympanic membranes are normal and external auditory canals are clear. Oropharynx with no redness, swelling, or masses, exudates, or evidence of obstruction, uvula midline. Mucous membranes moist. Neck: Trachea midline, no thyromegaly or masses palpated, and no cervical lymphadenopathy. Supple, full range of motion without nuchal rigidity, or vertebral point tenderness. No Meningismus. Cardiovascular: Regular rate and rhythm with a normal S1 and S2. No gallops, murmurs, or rubs. Normal PMI, no JVD. No pulse deficits. Respiratory: Lungs have equal breath sounds bilaterally, clear to auscultation and percussion. No rales, rhonchi or wheezes noted. No increased work of breathing, no retractions or nasal flaring. Back: No spinal tenderness. No costovertebral tenderness. Full range of motion. Skin: Warm, dry with normal turgor. Normal color with no rashes, no lesions, and no evidence of cellulitis. MS/ Extremity: Pulses equal, no cyanosis. Neurovascular intact. Full, normal range of motion. Neuro: Awake and alert, GCS 15, oriented to person, place, time, and situation. Cranial nerves II-XII grossly intact. Motor strength 5/5 in all extremities. Sensory grossly intact. Cerebellar exam normal. Normal gait. 06:26 Abdomen/GI: Inspection: scar(s), are noted in the right lower quadrant, Bowel sounds: active, all quadrants, Palpation: soft, in all quadrants, moderate abdominal tenderness, in the right lower quadrant, right mid abdomen, and mid upper abdomen , mass, is not appreciated, rebound tenderness, is not appreciated, voluntary guarding, is elicited in the upper abdominal region , involuntary guarding, is not appreciated, no appreciated organomegaly, Indicators: McBurney's point is not tender, Valdivia's sign is negative, Rovsing's sign is negative, Liver: tenderness, is not appreciated. Vital Signs: 06:05 BP 129 / 90; Pulse 98; Resp 18 S; Temp 98.4(O); Pulse Ox 100% on R/A; Weight 88.45 kg bb (R); Height 5 ft. 7 in. (170.18 cm) (R); Pain 8/10; 06:27 BP 112 / 87; Pulse 93; Resp 18; Pulse Ox 97% on R/A; lp1 07:35 BP 111 / 81; Pulse 92; Resp 16; Temp 98.5; Pulse Ox 99% ; bp 06:05 Body Mass Index 30.54 (88.45 kg, 170.18 cm) bb MDM: 06:06 Patient medically screened. [facility] 07:19 Differential diagnosis: Nonspecific abd pain, gastritis, cholecystitis, pancreatitis, jr8 diverticulitis, viral gastroenteritis, gastroenteritis, Pyelonephritis, and renal stone. Data reviewed: vital signs, nurses notes, lab test result(s), radiologic studies, CT scan. Data interpreted: Pulse oximetry: on room air is 97 %. Interpretation: normal. Counseling: I had a detailed discussion with the patient and/or guardian regarding: the historical points, exam findings, and any diagnostic results supporting the discharge/admit diagnosis, lab results, radiology results, the need for outpatient follow up, a family practitioner, to return to the emergency department if symptoms worsen or persist or if there are any questions or concerns that arise at home. Response to treatment: the patient's symptoms have markedly improved after treatment. Special discussion: Based on the patient's Hx, exam, and Dx evaluation, there is no indication for emergent surgery or inpatient Tx. It is understood by the patient/guardian that if the Sx's persist or worsen they need to return immediately for re-evaluation. ED course: Patient feeling much better. Discussed labs and images with patient. No emergent findings. CT suggestive of gastroenteritis pattern. 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 If worse to come back. Otherwise to f/u with PCP. Patient good with plan . 11/07 06:07 Order name: Basic Metabolic Panel; Complete Time: 07:00 11/07 06:07 Order name: CBC with Diff 11/07 06:07 Order name: Creatinine for Radiology; Complete Time: 07:00 [facility] 11/07 06:14 Order name: LFT's; Complete Time: 07:00 [facility] 11/07 06:14 Order name: Lipase; Complete Time: 07:00 [facility] 11/07 06:34 Order name: CBC Smear Scan [facility] 11/07 06:07 Order name: IV Saline Lock; Complete Time: 06:27 11/07 06:07 Order name: Labs collected and sent; Complete Time: 06:29 [facility] 11/07 06:07 Order name: Urine Test (obtain specimen); Complete Time: 06:11/07 06:07 Order name: Urine Dipstick-Ancillary (obtain specimen); Complete Time: 06:27 8 11/07 06:23 Order name: CT Abd/Pelvis - W/Contrast; Complete Time: 07:13 Administered Medications: 06:26 Drug: Demerol 25 mg Route: IVP; Site: right antecubital; lp1 06:51 Follow up: Response: Pain is decreased lp1 06:27 Drug: Phenergan 12.5 mg Route: IVP; Site: right antecubital; lp1 06:52 Follow up: Response: Nausea is decreased lp1 Disposition: 11/07/18 07:22 Discharged to Home. Impression: Acute Gastroenteritis . - Condition is Stable. - Discharge Instructions: Viral Gastroenteritis, Adult. - Prescriptions for Bentyl 20 mg Oral Tablet - take 1 tablet by ORAL route every 6 hours As needed; 20 tablet. promethazine 25 mg Oral Tablet - take 1 tablet by ORAL route every 6 hours As needed; 20 tablet. - Medication Reconciliation Form, Thank You Letter, Antibiotic Education, Prescription Opioid Use form. - Follow up: Arina Hill DO; When: 2 - 3 days; Reason: Recheck today's complaints, Continuance of care, Re-evaluation by your physician. - Problem is new. - Symptoms have improved. Signatures: Dispatcher [employer] EDKY Deena Burden RN RN Cori Carpenter RN RN lp1 Naresh Preston PA PA jr8 Vinh June RN RN bp Corrections: (The following items were deleted from the chart) 07:36 07:22 11/07/2018 07:22 Discharged to Home. Impression: Acute Gastroenteritis . bp Condition is Stable. Forms are Medication Reconciliation Form, Thank You Letter, Antibiotic Education, Prescription Opioid Use. Follow up: Arina Hill; When: 2 - 3 days; Reason: Recheck today's complaints, Continuance of care, Re-evaluation by your physician. Problem is new. Symptoms have improved. jr8
--- NOTE | 2018-11-07 07:22 | ER ---
Nurse's Notes [facility] Name: Jennifer Uriostegui Age: 33 yrs Sex: Female : 1985 Arrival Date: 11/07/2018 Time: 05:54 Bed 18 Private MD: Arina Hill H Diagnosis: Acute Gastroenteritis Presentation: 11/07 06:00 Presenting complaint: Patient states: she is having severe right upper quadrant pain bb which started last night then she started vomiting at approx 0100 pain is currently 8/10. Transition of care: patient was not received from another setting of care. Onset of symptoms was November 06, 2018. Risk Assessment: Do you want to hurt yourself or someone else? Patient reports no desire to harm self or others. Initial Sepsis Screen: Does the patient meet any 2 criteria? No. Patient's initial sepsis screen is negative. Does the patient have a suspected source of infection? No. Patient's initial sepsis screen is negative. Care prior to arrival: None. 06:00 Method Of Arrival: Ambulatory bb 06:00 Acuity: GISELLE 3 bb Triage Assessment: 07:00 General: Appears in no apparent distress. comfortable, Behavior is calm, cooperative, bp appropriate for age. GI: No signs and/or symptoms were reported involving the gastrointestinal system. 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 - Social history:: Smoking status: Patient/guardian denies using tobacco, Patient uses alcohol, occasionally. - Ebola Screening: : No symptoms or risks identified at this time. Screenin:08 Abuse screen: Denies threats or abuse. Denies injuries from another. Nutritional lp1 screening: No deficits noted. Tuberculosis screening: No symptoms or risk factors identified. Fall Risk None identified. Assessment: 06:27 General: Appears uncomfortable, Behavior is restless. Pain: Complains of pain in lp1 epigastric area and right upper quadrant Pain currently is 9 out of 10 on a pain scale. Quality of pain is described as sharp, stabbing. Neuro: Level of Consciousness is awake, alert, obeys commands, Oriented to person, place, time, situation. Cardiovascular: Patient's skin is warm and dry. Respiratory: Respiratory effort is even, unlabored. GI: Abdomen is non-distended, Bowel sounds present X 4 quads. Abdomen is tender to palpation in epigastric area and right upper quadrant Reports nausea, vomiting. : No signs and/or symptoms were reported regarding the genitourinary system. EENT: No signs and/or symptoms were reported regarding the EENT system. Derm: Skin is intact, Skin is dry, Skin is normal. Musculoskeletal: Circulation, motion, and sensation intact. 07:00 Reassessment: RECD REPORT FROM KAYE HOLLEY. 33YO WF P/W RUQ PAIN AND NAUSEA/VOMITING. NO bp ACUTE S/S AT THIS TIME. 07:33 Reassessment: PT D/C HOME AMBULATORY, DX WITH GASTROENTERITIS. bp Vital Signs: 06:05 BP 129 / 90; Pulse 98; Resp 18 S; Temp 98.4(O); Pulse Ox 100% on R/A; Weight 88.45 kg bb (R); Height 5 ft. 7 in. (170.18 cm) (R); Pain 8/10; 06:27 BP 112 / 87; Pulse 93; Resp 18; Pulse Ox 97% on R/A; lp1 07:35 BP 111 / 81; Pulse 92; Resp 16; Temp 98.5; Pulse Ox 99% ; bp 06:05 Body Mass Index 30.54 (88.45 kg, 170.18 cm) bb ED Course: 05:54 Patient arrived in ED. es 05:54 Arina Hill DO is Private Physician. es 06:02 Triage completed. bb 06:05 Arm band placed on Patient placed in an exam room, on a stretcher, on pulse oximetry. bb Family accompanied patient. 06:05 Inserted saline lock: 20 gauge in right antecubital area, using aseptic technique. lp1 Blood collected. 06:06 [facility]. jr8 06:06 David Fairchild MD is Attending Physician. jr8 06:07 Kaye Mendez, RN is Primary Nurse. lp1 06:08 Patient has correct armband on for positive identification. Placed in gown. Bed in low lp1 position. Call light in reach. Pulse ox on. NIBP on. 06:10 Urine collected: clean catch specimen, clear. lp1 06:51 Inserted saline lock: 22 gauge in left antecubital area, using aseptic technique. lp1 07:01 CT Abd/Pelvis - W/Contrast In Process Unspecified. EDMS 07:15 Primary Nurse role handed off by Kaye Mendez, RN bp 07:15 Vinh June, RN is Primary Nurse. bp 07:21 Arina Hill DO is Referral Physician. jr8 07:34 No provider procedures requiring assistance completed. IV discontinued, intact, bp bleeding controlled, No redness/swelling at site. Pressure dressing applied. Administered Medications: 06:26 Drug: Demerol 25 mg Route: IVP; Site: right antecubital; lp1 06:51 Follow up: Response: Pain is decreased lp1 06:27 Drug: Phenergan 12.5 mg Route: IVP; Site: right antecubital; lp1 06:52 Follow up: Response: Nausea is decreased lp1 Outcome: 07:22 Discharge ordered by . jr8 07:34 Discharged to home ambulatory. bp 07:34 Condition: stable 07:34 Discharge instructions given to patient, Instructed on discharge instructions, follow up and referral plans. medication usage, Demonstrated understanding of instructions, follow-up care, medications, Prescriptions given X 2. 07:36 Patient left the ED. bp Signatures: Dispatcher [employer] EDNury Little Brenda, RN RN bb Kaye Mendez, KISHAN RN lp1 Naresh Preston PA PA jr8 Vinh June, KISHAN RN bp
[2018-11-07 08:52] LABS: Blood Morphology Comment NOT SEEN (NOT SEEN); Platelet Estimate ADEQ; Urine White Blood Cell Casts OK
== END 2018-11-07 07:36 | disposition home or self-care (01) ==
LOC: ER 05:52
DX: K52.9 Noninfective gastroenteritis and colitis, unspecified (principal); F41.9 Anxiety disorder, unspecified; F32.9 Major depressive disorder, single episode, unspecified; Z88.5 Allergy status to narcotic agent; Z88.8 Allergy status to other drugs, medicaments and biological substances; Z98.82 Breast implant status
CPT/HCPCS: 36415; 74177; 80048; 80076; 83690; 85025; 96374; 96375; 99284; J2175; J2550; Q9967

== ENCOUNTER 2019-05-29 16:09 | Emergency (ER) | payer OTHER, SELFPAY ==
--- OUTSIDE RECORDS SUMMARY | 2019-05-29 16:12 | XMS REPORT ---
:1985 [facility] Address [address] [place] [address] Dr. Arrieta [address] [place] [id number] Care Team Providers Name Role Phone Unavailable Unavailable Unavailable Problems This patient has no known problems. Allergies, Adverse Reactions, Alerts This patient has no known allergies or adverse reactions. Medications This patient has no known medications.
[2019-05-29] MEDS ORDERED: PROMETHAZINE 25 MG/ML VIAL ONE (17:26)
[2019-05-29] MEDS ORDERED: NA CHLORIDE 0.9% 1,000 ML ONE ×2 (17:26→18:44)
[2019-05-29 17:29] LABS: Urine Blood NEGATIVE (NEG); Urine Glucose NEGATIVE (NEG); Urine Protein NEGATIVE (NEG); Urine Specific Gravity <1.005 (1.005-1.030)
[2019-05-29 17:34] LABS: Absolute Lymphocytes (CBC) 0.3 K/uL (0.7-4.9); Basophils % 0.4 % (0-1.3); Hematocrit 38.7 % (36.0-45.0); Lymphocytes % 4.6 % (15.3-44.8); MPV 7.8 fL (7.6-11.3); RBC Red Blood Cell Count 4.46 M/uL (3.86-4.86)
[2019-05-29 17:51] LABS: Potassium 3.4 mmol/L (3.5-5.1)
[2019-05-29] MEDS ORDERED: ACETAMINOPHEN 500 MG TAB ONE (18:16)
[2019-05-29] MEDS ORDERED: OSELTAMIVIR 75 MG CAP ONE (18:16)
[2019-05-29 18:19] LABS: Urine Bacteria <20 /HPF (<20); Urine Culture Reflex Order NOT NEEDED; Urine RBC <5 /HPF (NONE SEEN)
--- NOTE | 2019-05-29 18:19 | ER ---
Nurse's Notes [facility] Name: Jennifer Uriostegui Age: 33 yrs Sex: Female : 1985 Arrival Date: 05/29/2019 Time: 16:11 Bed 15 Private MD: Diagnosis: Influenza due to unidentified influenza virus;Lower abdominal pain, unspecified Presentation: 05/29 16:26 Presenting complaint: Patient states: "I just started hurting all over and chills an aj1 hour ago and I knew I had a fever and I thought I might be getting the flu because this is how I felt last time, but then my lower abdomen started hurting really bad and that pain is just spreading and I'm starting to get nauseous" Patient also reports dysuria, urinary frequency. Transition of care: patient was not received from another setting of care. Onset of symptoms was May 29, 2019. Risk Assessment: Do you want to hurt yourself or someone else? Patient reports no desire to harm self or others. Initial Sepsis Screen: Does the patient meet any 2 criteria? HR > 90 bpm. No. Patient's initial sepsis screen is negative. Does the patient have a suspected source of infection? Yes: Dysuria/Frequency/Urgency/UTI. Care prior to arrival: None. 16:26 Method Of Arrival: Ambulatory aj 16:26 Acuity: GISELLE 4 aj1 Triage Assessment: 16:29 General: Appears in no apparent distress. uncomfortable, Behavior is calm, cooperative, aj1 appropriate for age. Pain: Complains of pain in suprapubic area Pain currently is 8 out of 10 on a pain scale. Neuro: Level of Consciousness is awake, alert, obeys commands. Cardiovascular: Patient's skin is warm and dry. Respiratory: Airway is patent Respiratory effort is even, unlabored, Respiratory pattern is regular, symmetrical. GI: Reports lower abdominal pain, nausea. 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 - Social history:: Smoking status: Patient/guardian denies using tobacco. - Ebola Screening: : Patient denies travel to an Ebola-affected area in the 21 days before illness onset. Screenin:20 Abuse screen: Denies threats or abuse. Nutritional screening: Patient is experiencing vc nausea without vomiting.. 17:20 Tuberculosis screening: No symptoms or risk factors identified. Fall Risk IV access (20 vc points). Total Garcia Fall Scale indicates No Risk (0-24 pts). Assessment: 17:43 General: Appears uncomfortable, Behavior is calm, cooperative. Pain: Complains of pain vc in head,neck,and lower abdomen. Pain in lower abdomen starts above pubic area and radiates to left and right lower quadrants. Pain worsens with pressure. Pain in head and neck hurt worse than abdomen. Pain at worst was 8 out of 10 on a pain scale. Neuro: Level of Consciousness is awake, alert, obeys commands, Oriented to person, place, time. Cardiovascular: Capillary refill < 3 seconds Patient's skin is warm and dry. Respiratory: Airway is patent Trachea midline Respiratory effort is even, unlabored, Denies cough, shortness of breath. GI: Abdomen is non-distended, Abdomen is tender to palpation in right lower quadrant and left lower quadrant. : Urine is clear. EENT: No deficits noted. Derm: Skin is intact, is healthy with good turgor, Skin temperature is hot. Musculoskeletal: Range of motion: intact in all extremities. 18:30 Reassessment: Patient is alert, oriented x 3, equal unlabored respirations, skin vc warm/dry/pink. Patient states her abdominal pain has not subsided. . 19:00 Reassessment: Patient appears in no apparent distress at this time. Patient and/or jb4 family updated on plan of care and expected duration. Pain level reassessed. Patient is alert, oriented x 3, equal unlabored respirations, skin warm/dry/pink. 20:30 Reassessment: Patient appears in no apparent distress at this time. Patient and/or jb4 family updated on plan of care and expected duration. Pain level reassessed. Patient is alert, oriented x 3, equal unlabored respirations, skin warm/dry/pink. Pt has a guest at the bedside. 21:03 Reassessment: Patient appears in no apparent distress at this time. Patient and/or jb4 family updated on plan of care and expected duration. Pain level reassessed. Patient is alert, oriented x 3, equal unlabored respirations, skin warm/dry/pink. Vital Signs: 16:29 BP 130 / 61; Pulse 127; Resp 20; Temp 100.9; Pulse Ox 99% on R/A; Weight 86.18 kg (R); aj1 Height 5 ft. 7 in. (170.18 cm) (R); Pain 8/10; 18:00 BP 120 / 69; Pulse 108; Resp 16; Temp 98.4(O); Pulse Ox 100% on R/A; vc 19:15 BP 114 / 74; Pulse 94; Resp 16; Temp 98.2(O); Pulse Ox 100% on R/A; jb4 20:30 BP 111 / 62; Pulse 93; Resp 16; Pulse Ox 100% on R/A; jb4 16:29 Body Mass Index 29.76 (86.18 kg, 170.18 cm) aj1 ED Course: 16:11 Patient arrived in ED. as 16:18 Sarah Cassidy FNP-C [facility]. snw 16:18 Neto Leyva MD is Attending Physician. snw 16:28 Triage completed. aj1 16:29 Arm band placed on Patient placed in an exam room. aj1 17:10 Inserted saline lock: 20 gauge in right forearm, using aseptic technique. Blood vc collected. 17:20 Patient has correct armband on for positive identification. Placed in gown. Bed in low vc position. Call light in reach. Side rails up X 1. Pulse ox on. NIBP on. Noise minimized. Lights dimmed. Cool cloth applied. 17:21 Nicolasa Sampson, KISHAN is Primary Nurse. vc 17:21 Test, Serum Sent. vc 17:21 Urine Dipstick--Ancillary (enter results) Sent. vc 17:21 Flu Sent. vc 17:21 Urine Microscopic Only Sent. vc 17:22 CBC with Diff Sent. vc 17:22 Chem 7 Sent. vc 17:36 Test, Serum Sent. vc 17:37 Urine Microscopic Only Sent. vc 17:37 Flu Sent. vc 17:37 Chem 7 Sent. vc 17:43 Awaiting lab results. vc 19:18 Report given to KISHAN Saavedra. vc 21:03 No provider procedures requiring assistance completed. IV discontinued, intact, jb4 bleeding controlled, No redness/swelling at site. Pressure dressing applied. Administered Medications: 17:25 Drug: Phenergan 12.5 mg Route: IVP; Site: right forearm; vc 19:04 Follow up: Response: No adverse reaction vc 17:30 Drug: NS 0.9% 1000 ml Route: IV; Rate: 1 bolus; Site: right forearm; vc 19:04 Follow up: Response: No adverse reaction; IV Status: Completed infusion vc 18:10 Drug: Tamiflu 75 mg Route: PO; vc 19:03 Follow up: Response: No adverse reaction vc 18:10 Drug: Tylenol 1000 mg Route: PO; vc 19:03 Follow up: Response: No adverse reaction vc 18:49 Drug: NS 0.9% 1000 ml Route: IV; Rate: 1000 ml; Site: right forearm; vc 20:00 Follow up: Response: No adverse reaction; IV Status: Completed infusion; IV Intake: jb4 1000ml 18:49 Drug: Pyridium 100 mg Route: PO; vc 19:02 Follow up: Response: No adverse reaction vc 20:09 CANCELLED (allergy): TORadol 30 mg IVP once snw 20:30 Drug: fentaNYL (PF) 25 mcg Route: IVP; Site: right antecubital; jb4 21:04 Follow up: Response: No adverse reaction; Pain is decreased; RASS: Alert and Calm (0) jb4 Point of Care Testing: Urine : 17:51 hCG Reading: Negative; Control Reading: Negative; vc Intake: 20:00 IV: 1000ml; Total: 1000ml. jb4 Outcome: 18:18 Discharge ordered by . snw 20:53 Discharge ordered by . snw 21:03 Discharged to home ambulatory, with family. jb4 21:03 Condition: stable 21:03 Discharge instructions given to patient, family, Instructed on discharge instructions, follow up and referral plans. medication usage, Demonstrated understanding of instructions, follow-up care, medications, Prescriptions given X 4. 21:04 Patient left the ED. jb4 Signatures: Mallorie Arias RN RN aj1 Sarah Cassidy, DIRECTOR OF SEARCH ENGINE OPTIMIZATION-C DIRECTOR OF SEARCH ENGINE OPTIMIZATION-Csnw Rachel Long James, RN RN jb4 Nicolasa Sampson, RN RN vc
--- NOTE | 2019-05-29 18:19 | EDPHYS ---
Physician Documentation [facility] Name: Jennifer Uriostegui Age: 33 yrs Sex: Female : 1985 Arrival Date: 05/29/2019 Time: 16:11 Bed 15 Private MD: ED Physician Neto Leyva HPI: 05/29 17:07 This 33 yrs old Female presents to ER via Ambulatory with complaints of snw Fever, Nausea, Abdominal Pain. 17:07 The patient reports fever, that was measured at 102 degrees Fahrenheit. Onset: The snw symptoms/episode began/occurred suddenly, 2 hour(s) ago, and became persistent. Associated signs and symptoms: Pertinent positives: abdominal pain, chills, cough, decreased appetite, nausea. Severity of symptoms: At their worst the symptoms were moderate. The patient has not experienced similar symptoms in the past. The patient has not recently seen a physician. 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 - Social history:: Smoking status: Patient/guardian denies using tobacco. - Ebola Screening: : Patient denies travel to an Ebola-affected area in the 21 days before illness onset. ROS: 17:06 Eyes: Negative for injury, pain, redness, and discharge, ENT: Negative for injury, snw pain, and discharge, Neck: Negative for injury, pain, and swelling, Cardiovascular: Negative for chest pain, palpitations, and edema. 17:06 Back: Negative for injury and pain. 17:06 MS/Extremity: Negative for injury and deformity, Skin: Negative for injury, rash, and discoloration, Neuro: Negative for headache, weakness, numbness, tingling, and seizure. 17:06 Constitutional: Positive for body aches, fever, malaise, poor PO intake. 17:06 Respiratory: Positive for cough. 17:06 Abdomen/GI: Positive for abdominal pain, nausea. 17:06 : Positive for burning with urination. Exam: 17:00 Head/Face: Normocephalic, atraumatic. Eyes: Pupils equal round and reactive to light, snw extra-ocular motions intact. Lids and lashes normal. Conjunctiva and sclera are non-icteric and not injected. Cornea within normal limits. Periorbital areas with no swelling, redness, or edema. ENT: Nares patent. No nasal discharge, no septal abnormalities noted. Tympanic membranes are normal and external auditory canals are clear. Oropharynx with no redness, swelling, or masses, exudates, or evidence of obstruction, uvula midline. Mucous membranes moist. Neck: Trachea midline, no thyromegaly or masses palpated, and no cervical lymphadenopathy. Supple, full range of motion without nuchal rigidity, or vertebral point tenderness. No Meningismus. Chest/axilla: Normal chest wall appearance and motion. Nontender with no deformity. No lesions are appreciated. 17:00 Respiratory: Lungs have equal breath sounds bilaterally, clear to auscultation and percussion. No rales, rhonchi or wheezes noted. No increased work of breathing, no retractions or nasal flaring. Abdomen/GI: Soft, non-tender, with normal bowel sounds. No distension or tympany. No guarding or rebound. No evidence of tenderness throughout. Back: No spinal tenderness. No costovertebral tenderness. Full range of motion. Skin: Warm, dry with normal turgor. Normal color with no rashes, no lesions, and no evidence of cellulitis. MS/ Extremity: Pulses equal, no cyanosis. Neurovascular intact. Full, normal range of motion. Neuro: Awake and alert, GCS 15, oriented to person, place, time, and situation. Cranial nerves II-XII grossly intact. Motor strength 5/5 in all extremities. Sensory grossly intact. Cerebellar exam normal. Normal gait. Psych: Awake, alert, with orientation to person, place and time. Behavior, mood, and affect are within normal limits. 17:00 Constitutional: The patient appears alert, awake, febrile, uncomfortable. 17:00 Cardiovascular: Rate: tachycardic, Rhythm: regular, Pulses: no pulse deficits are appreciated. Vital Signs: 16:29 BP 130 / 61; Pulse 127; Resp 20; Temp 100.9; Pulse Ox 99% on R/A; Weight 86.18 kg (R); aj1 Height 5 ft. 7 in. (170.18 cm) (R); Pain 8/10; 18:00 BP 120 / 69; Pulse 108; Resp 16; Temp 98.4(O); Pulse Ox 100% on R/A; vc 19:15 BP 114 / 74; Pulse 94; Resp 16; Temp 98.2(O); Pulse Ox 100% on R/A; jb4 20:30 BP 111 / 62; Pulse 93; Resp 16; Pulse Ox 100% on R/A; jb4 16:29 Body Mass Index 29.76 (86.18 kg, 170.18 cm) aj1 MDM: 16:41 Patient medically screened. snw 18:20 Data reviewed: vital signs, nurses notes. Data interpreted: Pulse oximetry: on room air snw is 100 %. Interpretation: normal. Counseling: I had a detailed discussion with the patient and/or guardian regarding: the historical points, exam findings, and any diagnostic results supporting the discharge/admit diagnosis, lab results, the need for outpatient follow up, to return to the emergency department if symptoms worsen or persist or if there are any questions or concerns that arise at home. Special discussion: Based on the history and exam findings, there is no indication for further emergent testing or inpatient evaluation. I discussed with the patient/guardian the need to see the primary care provider for further evaluation of the symptoms. 05/29 16:54 Order name: Flu; Complete Time: 18:16 snw 05/29 16:54 Order name: Urine Microscopic Only; Complete Time: 18:21 snw 05/29 16:54 Order name: CBC with Diff; Complete Time: 18:34 snw 05/29 16:54 Order name: Chem 7; Complete Time: 18:16 snw 05/29 17:09 Order name: Urine Dipstick--Ancillary (enter results); Complete Time: 17:35 bd 05/29 17:09 Order name: Test, Serum; Complete Time: 18:16 bd 05/29 17:36 Order name: CBC Smear Scan; Complete Time: 18:34 EDMS 05/29 16:54 Order name: Urine Test (obtain specimen); Complete Time: 17:21 snw 05/29 16:54 Order name: Urine Dipstick-Ancillary (obtain specimen); Complete Time: 17:21 snw Administered Medications: 17:25 Drug: Phenergan 12.5 mg Route: IVP; Site: right forearm; vc 19:04 Follow up: Response: No adverse reaction vc 17:30 Drug: NS 0.9% 1000 ml Route: IV; Rate: 1 bolus; Site: right forearm; vc 19:04 Follow up: Response: No adverse reaction; IV Status: Completed infusion vc 18:10 Drug: Tamiflu 75 mg Route: PO; vc 19:03 Follow up: Response: No adverse reaction vc 18:10 Drug: Tylenol 1000 mg Route: PO; vc 19:03 Follow up: Response: No adverse reaction vc 18:49 Drug: NS 0.9% 1000 ml Route: IV; Rate: 1000 ml; Site: right forearm; vc 20:00 Follow up: Response: No adverse reaction; IV Status: Completed infusion; IV Intake: jb4 1000ml 18:49 Drug: Pyridium 100 mg Route: PO; vc 19:02 Follow up: Response: No adverse reaction vc 20:09 CANCELLED (allergy): TORadol 30 mg IVP once snw 20:30 Drug: fentaNYL (PF) 25 mcg Route: IVP; Site: right antecubital; jb4 21:04 Follow up: Response: No adverse reaction; Pain is decreased; RASS: Alert and Calm (0) jb4 Point of Care Testing: Urine : 17:51 hCG Reading: Negative; Control Reading: Negative; vc Disposition: 05/30 07:02 Co-signature as Attending Physician, Neto Leyva MD. rn Disposition: 05/29/19 20:53 Discharged to Home. Impression: Influenza due to unidentified influenza virus, Lower abdominal pain, unspecified. - Condition is Stable. - Discharge Instructions: Abdominal Pain, Adult, Fever, Adult, Influenza, Adult, Rehydration, Adult, [place] Diet. - Prescriptions for Bentyl 20 mg Oral Tablet - take 1 tablet by ORAL route every 6 hours As needed; 20 tablet. promethazine 25 mg Oral Tablet - take 1 tablet by ORAL route every 6 hours As needed; 20 tablet. cefdinir 300 mg Oral capsule - take 2 capsule by ORAL route once daily for 7 days; 14 capsule. Tamiflu 75 mg Oral Capsule - take 1 tablet by ORAL route every 12 hours for 5 days; 10 tablet. - Work release form, Medication Reconciliation Form, Thank You Letter, Antibiotic Education, Prescription Opioid Use form. - Follow up: Emergency Department; When: As needed; Reason: Worsening of condition. Follow up: Private Physician; When: 2 - 3 days; Reason: Recheck today's complaints, Continuance of care, Re-evaluation by your physician. Signatures: Dispatcher [employer] EDMallorie Daniels RN RN aj1 Sarah Cassidy, CIRCLE CUTTING SAW OPERATOR-C CIRCLE CUTTING SAW OPERATOR-Csnw Neto Leyva MD MD rn Bryson, James, RN RN jb4 Nicolasa Sampson RN KISHAN vc Corrections: (The following items were deleted from the chart) 05/29 18:45 18:18 05/29/2019 18:18 Discharged to Home. Impression: Influenza due to unidentified snw influenza virus. Condition is Stable. Forms are Medication Reconciliation Form, Thank You Letter, Antibiotic Education, Prescription Opioid Use. Follow up: Emergency Department; When: As needed; Reason: Worsening of condition. Follow up: Private Physician; When: 2 - 3 days; Reason: Recheck today's complaints, Continuance of care, Re-evaluation by your physician. [facility] 20:09 19:45 TORadol 30 mg IVP once ordered. [facility] 21:04 20:53 05/29/2019 20:53 Discharged to Home. Impression: Influenza due to unidentified jb4 influenza virus; Lower abdominal pain, unspecified. Condition is Stable. Prescriptions for promethazine 25 mg Oral Tablet - take 1 tablet by ORAL route every 6 hours As needed; 20 tablet, Tamiflu 75 mg Oral Capsule - take 1 tablet by ORAL route every 12 hours for 5 days; 10 tablet, Zithromax 500 mg Oral Tablet - take 1 tablet by ORAL route once daily for 5 days; 5 tablet. and Forms are Medication Reconciliation Form, Thank You Letter, Antibiotic Education, Prescription Opioid Use. Follow up: Emergency Department; When: As needed; Reason: Worsening of condition. Follow up: Private Physician; When: 2 - 3 days; Reason: Recheck today's complaints, Continuance of care, Re-evaluation by your physician. snw
[2019-05-29 18:32] LABS: Blood Morphology Comment NOTED (NOT SEEN); Platelet Estimate ADEQ; Poikilocytosis 1+; Urine White Blood Cell Casts OK
[2019-05-29] MEDS ORDERED: PHENAZOPYRIDINE 100MG TAB PO ONE (18:44)
[2019-05-29] MEDS ORDERED: KETOROLAC 30 MG/ML INJ ONE (20:02)
[2019-05-29] MEDS ORDERED: FENTANYL CITR 100 MCG/2 ML ONE (20:19)
[2019-05-29] MEDS ORDERED: OSELTAMIVIR PHOSPHATE 30 MG/5 ML SUSPENSION UD ONE (20:33)
[2019-05-29 22:27] VITALS: O2SAT 100
[2019-05-29 22:29] VITALS: TEMP 98.2
[2019-05-29 22:30] VITALS: BP 111/62
== END 2019-05-29 21:04 | disposition home or self-care (01) ==
LOC: ER 16:09
DX: J11.89 Influenza due to unidentified influenza virus with other manifestations (principal); Z88.8 Allergy status to other drugs, medicaments and biological substances
CPT/HCPCS: 96361; 85025; 80048; 36415; 84703; 87804 ×2; 96375; 96374; 99284; J2550; J3010; G9035; J7030 ×2; 81003; 81015

== ENCOUNTER 2025-04-15 22:29 | Emergency (ER) | payer OTHER ==
[2025-04-15] MEDS ORDERED: KETOROLAC 30 MG/ML INJ ONE (23:01)
[2025-04-15] MEDS ORDERED: HYDROCODONE/APAP 5/325 MG TAB ONE (23:23)
[2025-04-15] MEDS ORDERED: DIAZEPAM 5 MG TABLET ONE (23:23)
[2025-04-16 00:40] LABS: Urine Microscopic Reflex YN NO UMIC
[2025-04-16] MEDS ORDERED: LIDOCAINE 4% PATCH ONE (00:49)
--- NOTE | 2025-04-16 01:13 | RAD REPORT ---
CLINICAL HISTORY: Pain. COMPARISON: None. TECHNIQUE: CT LUMBAR SPINE WITHOUT IV CONTRAST on 04/15/2025 10:59 PM CDT This exam was performed according to our departmental dose-optimization program, which includes autom ated exposure control, adjustment of the mA and/or kV according to patient size and/or use of iterative reconstruction technique. FINDINGS: There is no acute fracture. Vertebral body heights are preserved. Alignment is anatomic. Disc spaces are maintained. Soft tissues are unremarkable. IMPRESSION: No acute fracture or subluxation. Electronically signed by: Mitesh Foreman MD 04/16/2025 01:08 AM CDT RP Due to temporary technical issues with the PACS[employer] reporting system, reports are being carl d by the in-house radiologist without review as a courtesy to ensure prompt reporting the interpreting radiologist is fully responsible for the content of the report. Transcribed Date/Time: 04/16/2025 1:13 AM
--- NOTE | 2025-04-16 01:21 | EDPHYS ---
Physician Documentation [facility] Name: Jennifer Uriostegui Age: 39 yrs Sex: Female : 1985 Arrival Date: 04/15/2025 Time: 22:29 Bed 8 Private MD: ED Physician Reid San HPI: 04/15 23:16 This 39 yrs old Female presents to ER via EMS with complaints of Back Pain. kb 23:16 Pt is a 39 year old female who presents for low back pain that radiates down right kb buttock and leg. States she has a bulging disc in her lumbar spine and over did it at her child's birthday alliance party today making the pain come on intensely. States she was trying to stretch out her back this evening and the pain became severe so she couldn't sit, put pressure on her right buttock or walk due to pain so she called EMS. EMS gave 100mcg of fentanyl in route. Denies bowel or bladder issues, urinary symptoms, fever. 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 - Infectious Disease History:: Denies. - Social history:: Smoking status: Patient denies any tobacco usage or history of. Patient/guardian denies using alcohol, street drugs. ROS: 23:16 Constitutional: As per HPI kb Exam: 23:19 Constitutional: This is a well developed, well nourished patient who is awake, alert, kb and in no acute distress. Head/Face: Normocephalic, atraumatic. ENT: Moist Mucous membranes Cardiovascular: Regular rate Respiratory: Respirations even and unlabored. No increased work of breathing. Talking in full sentences Abdomen/GI: Soft, non-tender. No distention Back: No spinal tenderness. No costovertebral tenderness. Full range of motion. Skin: Warm, dry with normal turgor. Normal color. MS/ Extremity: Pulses equal, no cyanosis. Neurovascular intact. Full, normal range of motion. Neuro: Awake and alert, GCS 15, oriented to person, place, time, and situation. Vital Signs: 23:02 BP 107 / 73; Pulse 74; Resp 18; Temp 98.1; Pulse Ox 99% ; Weight 86.18 kg; Height 5 ft. br2 6 in. ; Pain 5/10; 04/16 00:46 BP 107 / 67; Pulse 80; Resp 16; Temp 98.1; Pulse Ox 100% ; Pain 6/10; bm8 04/15 23:02 Body Mass Index 30.67 (86.18 kg, 167.64 cm) br2 04/15 23:02 Pain Scale: Adult br2 04/16 00:46 Pain Scale: Adult bm8 MDM: 04/15 22:58 Medical Screening Exam initiated kb 23:19 ED course: Pt has no tenderness upon exam. States it hurts when she moves, but not when kb pressure is applied. . 23:19 Data reviewed: vital signs, nurses notes. Historians other than the Patient: EMS: [facility]. 23:20 Differential diagnosis: herniated disc, sciatica, strain. Counseling: I had a detailed kb discussion with the patient and/or guardian regarding the historical points, exam findings, and any diagnostic results supporting the discharge/admit diagnosis, radiology results, the need for outpatient follow up, a family practitioner, to return to the emergency department if symptoms worsen or persist or if there are any questions or concerns that arise at home. 04/15 22:59 Order name: Test, Serum; Complete Time: 00:41 kb 04/16 00:13 Order name: UA Rfx Mumtaz Cult if indicated; Complete Time: 00:41 kb 04/15 22:59 Order name: CT Lumbar Spine Wo Con; Complete Time: 01:16 kb Administered Medications: 23:09 Drug: Decadron - Dexamethasone IVP 10 mg IVP once Route: IVP; Site: right antecubital; cp4 23:26 Follow up: Response: No adverse reaction cp4 23:09 Not Given (Patient Refused): [id number] mg IVP once cp4 23:26 Drug: HYDROcodone-acetaminophen PO 5 mg-325 mg 1 tabs PO once Route: PO; cp4 04/16 00:25 Follow up: Response: No adverse reaction; Pain is decreased cp4 04/15 23:26 Drug: Diazepam PO 5 mg PO once Route: PO; cp4 04/16 00:25 Follow up: Response: No adverse reaction; Pain is decreased cp4 00:52 Drug: Lidoderm Topical Patch 5 % (700 mg/patch) 1 patches Topical once; leave on for 12 cp4 hours; cover most painful area; may cut into smaller pieces Route: Topical; Site: affected area; Disposition Summary: 04/16/25 01:20 Discharge Ordered Notes: Location: Home kb Condition: Stable kb Diagnosis - Lumbago with sciatica, right side kb Followup: kb - With: Emergency Department - When: As needed - Reason: Worsening of condition Followup: kb - With: Private Physician - When: 2 - 3 days - Reason: Recheck today's complaints, Continuance of care, Re-evaluation by your physician Discharge Instructions: - Discharge Summary Sheet kb - Sciatica, [id number] kb Forms: - Medication Reconciliation Form kb - Antibiotic Education kb - Prescription Opioid Use kb - Patient Portal Instructions kb - Leadership Thank You Letter kb Prescriptions: - Prednisone 20 mg Oral Tablet - take 1 tablet ORAL route once daily for 5 days; 5 tablet; Refills: 0, Product kb Selection Permitted - Cyclobenzaprine 10 mg Oral tablet - take 1 tablet ORAL route every 8 hours As needed; 21 tablet; Refills: 0, kb Product Selection Permitted Signatures: Dispatcher [employer] [facility] Patricia Kyle, RYAN BAE-Windy Mcdonough cp4 Erika Portillo, RN RN br2 Corrections: (The following items were deleted from the chart) 04/15 23:00 23:00 TEST, SERUM+SC.LAB.BRZ ordered. [facility] 23:19 23:16 Pt is a 39 year old female who presents for low back pain that radiates down kb right buttock and leg. States she has a bulging disc in her lumbar spine and over did it at her child's birthday alliance party today making the pain come on intensely. States she was trying to stretch out her back this evening and the pain became severe so she couldn't sit, put pressure on her right buttock or walk due to pain so she called EMS. EMS gave 100mcg of fentanyl in route. kb
--- NOTE | 2025-04-16 01:21 | ER ---
Nurse's Notes [facility] Name: Jennifer Uriostegui Age: 39 yrs Sex: Female : 1985 Arrival Date: 04/15/2025 Time: 22:29 Bed 8 Private MD: Diagnosis: Lumbago with sciatica, right side Presentation: 04/15 23:02 Chief complaint: Patient states: LOWER BACK PAIN THAT RADIATES TO RLE..FOR THE LAST 2 br2 WEEKS, WORSE TODAY. Coronavirus screen: Client denies travel out of the [place] in the last 14 days. Ebola Screen: Patient denies exposure to infectious person. Initial Sepsis Screen: Does the patient meet any 2 criteria? No. Patient's initial sepsis screen is negative. Does the patient have a suspected source of infection? No. Patient's initial sepsis screen is negative. Risk Assessment: Do you want to hurt yourself or someone else? Patient reports no desire to harm self or others. Onset of symptoms was March 25, 2025. 23:02 Method Of Arrival: EMS: [facility] br2 23:02 Acuity: GISELLE 3 br2 Triage Assessment: 23:05 General: Appears uncomfortable, Behavior is calm, cooperative. Pain: Complains of pain br2 in right low back Pain radiates to right hamstring, posterior aspect of right knee and right calf. 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 - Infectious Disease History:: Denies. - Social history:: Smoking status: Patient denies any tobacco usage or history of. Patient/guardian denies using alcohol, street drugs. Screenin:12 [facility] ED Fall Risk Assessment (Adult) History of falling in the last 3 months, cp4 including since admission No falls in past 3 months (0 pts) Confusion or Disorientation No (0 pts) Intoxicated or Sedated No (0 pts) Impaired Gait No (0 pts) Mobility Assist Device Used No (0 pt) Altered Elimination No (0 pt) Score/Fall Risk Level 0 - 2 = Low Risk Oriented to surroundings, Maintained a safe environment, Assessed \T\ reinforced patient's understanding of fall precautions, Hourly rounding (assess needs \T\ fall precautionary measures) done. Abuse screen: Denies threats or abuse. Denies injuries from another. Nutritional screening: No deficits noted. Tuberculosis screening: No symptoms or risk factors identified. Never had TB. Assessment: 23:12 General: Appears in no apparent distress. uncomfortable, Behavior is calm, cooperative, cp4 appropriate for age. Pain: Complains of pain in right leg and right calf and posterior aspect of right knee and right hamstring and back and right low back Pain radiates to right leg and right calf and posterior aspect of right knee and right hamstring Pain currently is 5 out of 10 on a pain scale. Neuro: Level of Consciousness is awake, alert, obeys commands, Oriented to person, place, time, situation. Cardiovascular: Patient's skin is warm and dry. Respiratory: Airway is patent Respiratory effort is even, unlabored. GI: No signs and/or symptoms were reported involving the gastrointestinal system. : No signs and/or symptoms were reported regarding the genitourinary system. EENT: No signs and/or symptoms were reported regarding the EENT system. Derm: No signs and/or symptoms reported regarding the dermatologic system. Musculoskeletal: Reports pain in right leg and right calf and posterior aspect of right knee and right hamstring and back and right low back. 04/16 00:42 Reassessment: Patient appears in no apparent distress at this time. Patient and/or cp4 family updated on plan of care and expected duration. Pain level reassessed. Patient is alert, oriented x 3, equal unlabored respirations, skin warm/dry/pink. Vital Signs: 04/15 23:02 BP 107 / 73; Pulse 74; Resp 18; Temp 98.1; Pulse Ox 99% ; Weight 86.18 kg; Height 5 ft. br2 6 in. ; Pain 5/10; 04/16 00:46 BP 107 / 67; Pulse 80; Resp 16; Temp 98.1; Pulse Ox 100% ; Pain 6/10; bm8 04/15 23:02 Body Mass Index 30.67 (86.18 kg, 167.64 cm) br2 04/15 23:02 Pain Scale: Adult br2 04/16 00:46 Pain Scale: Adult bm8 ED Course: 04/15 22:52 Patient arrived in ED. rv1 22:58 Patricia Kyle FNP-C [facility]. kb 22:58 Reid San MD is Attending Physician. kb 23:02 Windy Zeng is Primary Nurse. cp4 23:05 Triage completed. br2 23:05 Arm band placed on right wrist. br2 23:12 Bed in low position. Call light in reach. Side rails up X2. cp4 23:12 No provider procedures requiring assistance completed. Maintain EMS IV. Dressing cp4 intact. Good blood return noted. Site clean \T\ dry. Gauge \T\ site: 20 G RAC. Flushed with 10 mL NS. 04/16 00:42 CT Lumbar Spine Wo Con In Process Unspecified. EDMS 01:40 Provided Education on: back pain. cp4 01:40 intact, bleeding controlled, No redness/swelling at site. Pressure dressing applied. cp4 Administered Medications: 04/15 23:09 Drug: Decadron - Dexamethasone IVP 10 mg IVP once Route: IVP; Site: right antecubital; cp4 23:26 Follow up: Response: No adverse reaction cp4 23:09 Not Given (Patient Refused): [id number] mg IVP once cp4 23:26 Drug: HYDROcodone-acetaminophen PO 5 mg-325 mg 1 tabs PO once Route: PO; cp4 04/16 00:25 Follow up: Response: No adverse reaction; Pain is decreased cp4 04/15 23:26 Drug: Diazepam PO 5 mg PO once Route: PO; cp4 04/16 00:25 Follow up: Response: No adverse reaction; Pain is decreased cp4 00:52 Drug: Lidoderm Topical Patch 5 % (700 mg/patch) 1 patches Topical once; leave on for 12 cp4 hours; cover most painful area; may cut into smaller pieces Route: Topical; Site: affected area; Medication: 04/15 23:12 VIS not applicable for this client. cp4 Outcome: 04/16 01:20 Discharge ordered by . kb 01:40 Discharged to home via wheelchair, cp4 01:40 Condition: stable 01:40 Discharge instructions given to patient, Instructed on discharge instructions, follow up and referral plans. medication usage, Demonstrated understanding of instructions, follow-up care, medications, Prescriptions given X 2, 01:41 Patient left the ED. cp4 Signatures: Dispatcher [employer] EDPatricia Polo, RYAN BAE-Rajani Kingston rv1 Widny Zeng cp4 David Perason, RN RN bm8 Erika Portillo RN RN br2
[2025-04-16 01:56] VITALS: TEMP 98.1
[2025-04-16 01:57] VITALS: BP 107/67; O2SAT 100
== END 2025-04-16 01:41 | disposition home or self-care (01) ==
LOC: ER 22:29
DX: M54.41 Lumbago with sciatica, right side (principal); F41.9 Anxiety disorder, unspecified; Z88.8 Allergy status to other drugs, medicaments and biological substances
CPT/HCPCS: 36415; 84703; 81003; 72131; 96374; 99284; J2003; J1100; J1885